=== PATIENT | female | born 1950 | race Caucasian/White ===

== ENCOUNTER 2023-11-16 07:27 | Observation (INO) ==
[2023-11-16] MEDS: NOZIN NASAL SANITIZER TP ONE (07:37)
[2023-11-16] MEDS: LR 1,000 ML IV 1,000 ML IV ONE (07:45)
[2023-11-16 08:38] LABS: ALANINE AMINOTRANSFERASE 16 Units/L (12-78); ALBUMIN 3.4 g/dL (3.4-5.0); ALKALINE PHOSPHATASE 69 Units/L (46-116); ASPARTATE AMINO TRANSFERASE 13 Units/L (15-37); BLOOD UREA NITROGEN 13 mg/dL (7-18); CALCIUM 8.7 mg/dL (8.5-10.1); CARBON DIOXIDE 27.4 mmol/L (21-32); CHLORIDE 109 mmol/L (98-107); CREATININE 0.82 mg/dL (0.55-1.02); GLUCOSE 101 mg/dL (65-99); POTASSIUM 3.4 mmol/L (3.5-5.1); SODIUM 144 mmol/L (136-145); TOTAL PROTEIN 7.3 g/dL (6.4-8.2); eGFR NON BLACK RACES > 60 (>60)
[2023-11-16] MEDS: ANCEF VIAL 1 GRAM ONE (08:40)
[2023-11-16] MEDS: NS 100 ML IV 100 ML ONE (08:40)
[2023-11-16] MEDS ORDERED: KETAMINE HCL ONE (08:43)
[2023-11-16] MEDS: PRECEDEX INJ VIAL ONE (08:43)
[2023-11-16] MEDS: DIPRIVAN VIAL 40 ML ONE (08:43)
[2023-11-16] MEDS: FENTANYL VIAL INJ 100 mcg ONE (08:43)
[2023-11-16] MEDS: VERSED ONE (08:43)
[2023-11-16] MEDS: VISIPAQUE 100 ML ONE (09:00)
[2023-11-16] MEDS: HEPARIN SODIUM IN D5W 75,000 UNITS/1,500 ML BAG ONE (09:00)
[2023-11-16] MEDS: VISIPAQUE 50 ML ONE (09:00)
[2023-11-16] MEDS: MARCAINE 0.5% ONE (09:00)
[2023-11-16] MEDS: HEPARIN SODIUM INJ 5000 UNITS ONE ×2 (09:03→10:07)
[2023-11-16] MEDS: EPHEDRINE SULFATE INJ ONE (09:06)
[2023-11-16] MEDS: NS 1,000 ML IV 1,000 ML ONE (09:21)
[2023-11-16] MEDS: DIPRIVAN VIAL 20 ML ONE (10:08)
[2023-11-16] MEDS: NITROGLYCERIN IV PREMIX 50 MG 50 MG/250 ML BAG ONE (10:10)
--- NOTE | 2023-11-16 10:53 | OR.IMMED ---
IMMEDIATE POST-OP NOTE Immediate Post-Op Note Date of surgery/procedure: 11/16/23 Pre-Op Diagnosis: critical ischemia left leg Post-Op Diagnosis: same Procedure: Diagnostic aortogram, arteriogram left leg, arctom and drug-coated balloon Caron plasti of the completely occluded left superficial femoral artery and subsequent drug-coated stents 4 placed in the superficial femoral artery. 1 of the middle stents was a Viabahn covered stent as there was a small area of extravasation, balloon angioplasty of the left anterior tibial artery, balloon angioplasty left posterior tibial artery Surgeon/Resort Host: Beth Findings: long segment occlusion of the left superficial femoral artery beginning at its takeoff with reconstitution of the popliteal artery and 3 vessel runoff ,at the end of the case there was no filling of the posterior tibial and anterior tibial arteries requiring the angioplasty of these 2 vessels Estimated Blood Loss: 100cc Complications: none Discharge Progress Notes: patient will be given 10 milligrams of Xarelto prior to discharge. She will be discharged home on Xarelto 2.5 milligrams BID and daily aspirin 81 milligrams.she will follow up in 1 week
[2023-11-16] MEDS: XARELTO PO ONE (10:59)
[2023-11-16] MEDS: LOVENOX INJ 80 MG SYR SC STA (14:50)
[2023-11-16] MEDS: DILAUDID INJ IVP ONE (14:55)
--- NOTE | 2023-11-16 16:55 | CT ---
EXAM:CTA AORTA WITH RUNOFFHISTORY:DIMINISHED PEDAL PULSES, PT HAD VASCULAR SURGERY THIS AM;COMPARISON:CTA aorta with bilateral lower extremity runoff October 14, 2023TECHNIQUE:CT angiography of the aorta with bilateral lower extremity runoff. Three-dimensional reconstructions and/or MIPS images were produced and reviewed.FINDINGS:CTA aorta: Bilateral breast implants are present and partially imaged. There may be some volume loss in the right implant, incompletely evaluated with CT.Emphysematous changes are noted in the lung bases. There is mild atelectasis in the lung bases. No liver mass. Vicarious excretion of contrast in the gallbladder. A gallstone is noted. Normal adrenal glands. Kidneys enhance normally. Normal spleen contours. Atrophy of the pancreas. Fluid material noted within the stomach.The bowel is not obstructed. No sign of appendicitis. No pelvic free fluid. Excreted contrast is present in the urinary bladder.The abdominal aorta tapers normally with advanced multifocal atherosclerotic plaque. The celiac and superior mesenteric arteries are patent. There is moderate calcified plaque at the origin of the left renal artery. 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 The dissection extends into the left internal iliac artery.There is a dissection of the right common iliac artery extending through the bifurcation of the right external and right internal iliac branches.CTA bilateral lower extremity runoff: There is a focal dissection versus linear plaque involving the right common femoral artery. There is weak flow in the right common femoral artery with multifocal ratty atherosclerotic plaque. Flow is noted in the right popliteal artery. There is faint flow in the proximal right calf trifurcation without demonstrable flow in the majority of the right anterior tibial artery. There is weak flow to the midportion of the right posterior tibial and peroneal branches without visible contrast to the ankle or foot.The left common femoral artery is patent. There are stents present in the left superficial femoral artery which demonstrate luminal contrast. The stents extend into the left popliteal artery demonstrating no flow within the left popliteal artery. 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 The dissection extends through the left internal iliac artery.There is a dissection of the right common iliac artery extending into the bifurcation of the right external and right internal iliac branches.CTA bilateral lower extremity runoff:The distal left popliteal stent is occluded. No flow in the left calf trifurcation.There is a vascular blush associated with the musculature involving the distal left superficial femoral artery stent consistent with focal arterial extravasation.There is a focal dissection versus linear plaque involving the right common femoral artery.There is faint flow in the proximal right calf trifurcation without demonstrable flow in the majority of the right anterior tibial artery. There is weak flow to the midportion of the right posterior tibial and peroneal branches without visible contrast to the ankle or foot.Dose reduction techniques including automated exposure control (AEC) and adjustment of mA and kv were utilized.THIS IS AN ELECTRONICALLY VERIFIED FINAL REPORT11/16/2023 4:51 PM - Electronically signed by Joe Guzman MD
[2023-11-16] MEDS: DILAUDID INJ IVP PRN (18:28)
[2023-11-16] MEDS: LR 1,000 ML IV 1,000 ML IV SCH (18:28)
[2023-11-16] MEDS ORDERED: LOVENOX INJ 80 MG SYR SC SCH ×2 (21:00)
[2023-11-16] MEDS: AMBIEN PO PRN (21:51)
[2023-11-16] MEDS: LOVENOX INJ 40 MG SYR SC SCH (21:51)
[2023-11-16] MEDS: HIBICLENS WASH EXT ONE (23:43)
[2023-11-17 06:03] LABS: BASOPHILS # (AUTO) 0.1 X10^3/uL (0.0-0.1); BASOPHILS % (AUTO) 0.8 % (0.2-1.0); EOSINOPHILS % (AUTO) 0.3 % (0.9-2.9); HEMATOCRIT 34.6 % (36.0-47.0); HEMOGLOBIN 11.6 g/dL (12.0-16.0); LYMPHOCYTES # (AUTO) 1.1 X10^3/uL (1.3-2.9); LYMPHOCYTES % (AUTO) 8.3 % (21.0-51.0); MEAN CORPUSCULAR HGB CONC 33.4 g/dL (33.0-35.0); MEAN CORPUSCULAR VOLUME 80.9 fL (80.0-100.0); MEAN PLATELET VOLUME 8.9 fL (7.4-11.0); NEUTROPHILS # (AUTO) 10.6 x10^3/uL (2.2-4.8); NEUTROPHILS % (AUTO) 82.6 % (42.0-75.0); PLATELET COUNT 235 X10^3/uL (150.0-450.0); RED BLOOD COUNT 4.28 X10^6/uL (3.5-5.4); RED CELL DISTRIBUTION WIDTH 15.5 % (11.6-16.5); WHITE BLOOD COUNT 12.8 X10^3/uL (3.6-10.0)
[2023-11-17 06:12] LABS: BLOOD UREA NITROGEN 9 mg/dL (7-18); CALCIUM 8.4 mg/dL (8.5-10.1); CARBON DIOXIDE 29.1 mmol/L (21-32); CHLORIDE 104 mmol/L (98-107); COR NA(FOR HYPERGLY) 141 mmol/L (136-145); CREATININE 0.73 mg/dL (0.55-1.02); GLUCOSE 116 mg/dL (65-99); SODIUM 141 mmol/L (136-145); eGFR NON BLACK RACES > 60 (>60)
[2023-11-17] MEDS ORDERED: CONSULT PHARMACY - POTASSIUM & MAGNESIUM XX SCH (07:00)
[2023-11-17] MEDS: K-DUR TAB 20 MEQ PO SCH (09:06)
[2023-11-17] MEDS: NORVASC TAB 5 MG PO SCH (09:06)
[2023-11-17] MEDS: NICOTINE PATCH TD SCH (09:07)
[2023-11-17] MEDS: PROTONIX TAB 40 MG PO SCH (09:07)
--- NOTE | 2023-11-17 15:01 | NOTE.SOAP ---
Soap Note Note for Day of Date of Exam: 11/16/23 Subjective Data Subjective Data: On November 15 patient underwent atherectomy and Drug coated stenting of the entire occluded left superaficial femoral artery. Patient was discharged home and returned several hours later complaining of severe pain of the right leg. CT angiogram obtained which had question of dissection of the right common iliac artery extending into the internal iliac artery artery as well as possible disssection of the left common leg artery. Patient had Doppler flow of the dorsalis pedis and posterior tibial on the left side. Right foot was Pale. Pain relieved with IV dilaudid . Good palpable femoral pulses bilaterally . Patietn has smoked several cigarettes since surgery. Objective Data Temperature: 98.2 F Pulse Rate: 89 Respiratory Rate: 18 Blood Pressure: 197/82 O2 Sat by Pulse Oximetry: 94 Objective Data: As above Assessment Assessment: as above Plan Plan: Admit, observe, start therapeutic Lovenox
[2023-11-17 15:14] LABS: BILIRUBIN,URINE NEGATIVE (NEGATIVE); BLOOD/HEMOGLOBIN,URINE 3+ (NEGATIVE); GLUCOSE, URINE NEGATIVE (NEGATIVE); KETONES,URINE NEGATIVE (NEGATIVE); LEUKOCYTE ESTERASE ,URINE 1+ (NEGATIVE); NITRITES,URINE NEGATIVE (NEGATIVE); PH,URINE 6.5 (5.0 - 8.0); PROTEIN,URINE 1+ (NEGATIVE); UROBILINOGEN,URINE NORMAL (NORMAL)
[2023-11-17 15:31] LABS: APPEARANCE,URINE CLEAR (CLEAR); COLOR,URINE STRAW (YELLOW)
[2023-11-17 15:32] LABS: BACTERIA,URINE TRACE /HPF (NEGATIVE); RBC,URINE 0-2 /HPF (0-3); SQUAMOUS EPITHELIAL CELL,UR NEGATIVE /HPF (NEGATIVE)
[2023-11-17 16:08] VITALS: BP 160/72; PULSE 90; RESP 18; TEMP 98.1; O2SAT 91
--- NOTE | 2023-11-17 18:06 | W.DIS.FURT ---
Summary of Discharge Discharge Summary of Date Date of Exam: 11/17/23 Admission Date Date of Admission: 11/16/23 Admission Diagnosis Hospital Course: This is a 73 year old female who was in the operating room as an outpatient yesterday the 15 of November for critical ischemia the left leg with long segment total occlusion of the left superficial femoral artery beginning at the takeoff of the superficial artery with reconstitution of the popliteal artery . Atherectomy and Drug coated stenting of the entire left superficial the artery and angioplasty or both the anterior tibial and posterior tibial arteries were performed . She did well initially and was discharged home. She is a heavy smoker and did smoke cigarettes prior to coming back and approximately 2 hours later she complained of severe pain of the right leg. At that time the left leg had good doppler signals at the ankle. The right leg did not have good doppler signals and although it was warm to the ankle there was some pallor of the right leg noted. Stat CT angiogram showed possible dissections of both the right and left common iliac arteries. The only thing that had been through those areas was the sheath itself. Her pain was controlled .She was hydrated. She is doing much better and this will have to be addressed. However, she will be discharged home at this time on her usual medications to include Xarelto and aspirin and she will be given prescription for Percocet, 10 milligram tablets, 1 every 6 hours PRN pain. She is scheduled for surgery on the 22 of November. We plan access through the left arm with intravascular ultrasound of both iliac arteries with possible bilateral iliac artery stenting. There was some question of possible poplteal disease of the left side on the most recent CT scan . That will also be addressed. She had complain of some burning with urination. Urinalysis showed positive leukocytes but was nitrite negative. She will be given Bactrim DS 1PO BID for 10 days. My office will make all the arrangements for surgery next week. Creatinine on discharge is 0.73. Vital Signs: Vital Signs (72 hours) 11/17/23 15:01 11/16/23 07:40 11/16/23 07:40 Temperature 98.2 F 97.8 F Pulse Rate 89 73 73 Pulse Rate [Left Brachial] Respiratory Rate 18 20 Blood Pressure 197/82 134/61 Blood Pressure [Right Arm] O2 Sat by Pulse Oximetry 94 L 99 Oxygen Delivery Method Room Air Oxygen Flow Rate FIO2% 11/16/23 10:45 11/16/23 10:55 11/16/23 11:10 Temperature Pulse Rate 73 66 61 Pulse Rate [Left Brachial] Respiratory Rate 18 18 20 Blood Pressure 115/57 111/56 120/60 Blood Pressure [Right Arm] O2 Sat by Pulse Oximetry 95 94 L 94 L Oxygen Delivery Method Room Air Room Air Room Air Oxygen Flow Rate FIO2% 11/16/23 11:40 11/16/23 11:50 11/16/23 11:25 Temperature Pulse Rate 66 66 63 Pulse Rate [Left Brachial] Respiratory Rate 18 18 18 Blood Pressure 105/58 114/55 137/62 Blood Pressure [Right Arm] O2 Sat by Pulse Oximetry 94 L 95 64 L Oxygen Delivery Method Room Air Room Air Room Air Oxygen Flow Rate FIO2% 11/16/23 14:55 11/16/23 15:22 11/16/23 16:00 Temperature 98.2 F Pulse Rate Pulse Rate [Left Brachial] 89 Respiratory Rate 20 18 Blood Pressure Blood Pressure [Right Arm] 197/82 O2 Sat by Pulse Oximetry 94 L Oxygen Delivery Method Room Air Room Air Oxygen Flow Rate FIO2% 11/16/23 16:10 11/16/23 16:15 11/16/23 16:25 Temperature Pulse Rate Pulse Rate [Left Brachial] 91 H 102 H Respiratory Rate Blood Pressure Blood Pressure [Right Arm] 189/84 174/76 167/55 O2 Sat by Pulse Oximetry Oxygen Delivery Method Oxygen Flow Rate FIO2% 11/16/23 15:25 11/16/23 18:28 11/16/23 18:58 Temperature Pulse Rate Pulse Rate [Left Brachial] Respiratory Rate 20 18 17 Blood Pressure Blood Pressure [Right Arm] O2 Sat by Pulse Oximetry Oxygen Delivery Method Oxygen Flow Rate FIO2% 11/16/23 20:00 11/16/23 22:50 11/17/23 04:19 Temperature 98.1 F Pulse Rate Pulse Rate [Left Brachial] 95 H Respiratory Rate 20 18 20 Blood Pressure Blood Pressure [Right Arm] 167/74 O2 Sat by Pulse Oximetry 93 L Oxygen Delivery Method Room Air Oxygen Flow Rate FIO2% 11/16/23 19:00 11/16/23 23:20 11/16/23 23:49 Temperature 98.1 F Pulse Rate Pulse Rate [Left Brachial] 86 Respiratory Rate 17 20 Blood Pressure Blood Pressure [Right Arm] 132/79 O2 Sat by Pulse Oximetry 92 L Oxygen Delivery Method Room Air Room Air Oxygen Flow Rate FIO2% 11/17/23 04:46 11/17/23 04:49 11/17/23 04:00 Temperature 98.6 F Pulse Rate Pulse Rate [Left Brachial] 85 Respiratory Rate 18 20 Blood Pressure Blood Pressure [Right Arm] 129/58 O2 Sat by Pulse Oximetry 92 L Oxygen Delivery Method Nasal Cannula Room Air Oxygen Flow Rate 2 FIO2% 28 11/17/23 08:00 11/17/23 08:59 11/17/23 09:04 Temperature 98.4 F Pulse Rate Pulse Rate [Left Brachial] 81 Respiratory Rate 20 Blood Pressure Blood Pressure [Right Arm] 160/70 O2 Sat by Pulse Oximetry 96 Oxygen Delivery Method Room Air Room Air Room Air Oxygen Flow Rate 2 FIO2% 28 11/17/23 09:32 11/17/23 15:11 11/17/23 10:02 Temperature Pulse Rate Pulse Rate [Left Brachial] Respiratory Rate 20 19 21 Blood Pressure Blood Pressure [Right Arm] O2 Sat by Pulse Oximetry Oxygen Delivery Method Oxygen Flow Rate FIO2% 11/17/23 12:00 11/17/23 16:00 11/17/23 15:41 Temperature 98.3 F 98.1 F Pulse Rate Pulse Rate [Left Brachial] 75 90 Respiratory Rate 18 18 19 Blood Pressure Blood Pressure [Right Arm] 173/73 160/72 O2 Sat by Pulse Oximetry 92 L 91 L Oxygen Delivery Method Room Air Room Air Oxygen Flow Rate FIO2% Labs: Laboratory Last Values WBC 12.8 X10^3/uL (3.6-10.0) H 11/17/23 05:43 RBC 4.28 X10^6/uL (3.5-5.4) 11/17/23 05:43 Hgb 11.6 g/dL (12.0-16.0) L 11/17/23 05:43 Hct 34.6 % (36.0-47.0) L 11/17/23 05:43 MCV 80.9 fL (80.0-100.0) 11/17/23 05:43 MCH 27.0 pg (27.0-34.0) 11/17/23 05:43 MCHC 33.4 g/dL (33.0-35.0) 11/17/23 05:43 RDW 15.5 % (11.6-16.5) 11/17/23 05:43 Plt Count 235 X10^3/uL (150.0-450.0) 11/17/23 05:43 MPV 8.9 fL (7.4-11.0) 11/17/23 05:43 Neut % (Auto) 82.6 % (42.0-75.0) H 11/17/23 05:43 Lymph % (Auto) 8.3 % (21.0-51.0) L 11/17/23 05:43 [place] % (Auto) 8.0 % (0.0-13.0) 11/17/23 05:43 Eos % (Auto) 0.3 % (0.9-2.9) L 11/17/23 05:43 Baso % (Auto) 0.8 % (0.2-1.0) 11/17/23 05:43 Neut # (Auto) 10.6 x10^3/uL (2.2-4.8) H 11/17/23 05:43 Lymph # (Auto) 1.1 X10^3/uL (1.3-2.9) L 11/17/23 05:43 [place] # (Auto) 1.0 x10^3/uL (0.3-0.8) H 11/17/23 05:43 Eos # (Auto) 0.0 x10^3/uL (0.0-0.2) 11/17/23 05:43 Baso # (Auto) 0.1 X10^3/uL (0.0-0.1) 11/17/23 05:43 Absolute Nucleated RBC 0.0 /100WBC 11/17/23 05:43 Sodium 141 mmol/L (136-145) 11/17/23 05:43 Corrected Sodium 141 mmol/L (136-145) 11/17/23 05:43 Potassium 3.0 mmol/L (3.5-5.1) L 11/17/23 05:43 Chloride 104 mmol/L (98-107) 11/17/23 05:43 Carbon Dioxide 29.1 mmol/L (21-32) 11/17/23 05:43 BUN 9 mg/dL (7-18) 11/17/23 05:43 Creatinine 0.73 mg/dL (0.55-1.02) 11/17/23 05:43 Est GFR (MDRD) Af Amer > 60 (>60) 11/17/23 05:43 Est GFR (MDRD) Non-Af > 60 (>60) 11/17/23 05:43 Glucose 116 mg/dL (65-99) H 11/17/23 05:43 Calcium 8.4 mg/dL (8.5-10.1) L 11/17/23 05:43 Corrected Calcium TNP 11/16/23 08:08 Magnesium 1.7 mg/dL (2.0-2.9) L 11/17/23 05:43 Total Bilirubin 0.30 mg/dL (0.2-1.0) 11/16/23 08:08 AST 13 Units/L (15-37) L 11/16/23 08:08 ALT 16 Units/L (12-78) 11/16/23 08:08 Alkaline Phosphatase 69 Units/L (46-116) 11/16/23 08:08 Total Protein 7.3 g/dL (6.4-8.2) 11/16/23 08:08 Albumin 3.4 g/dL (3.4-5.0) 11/16/23 08:08 Globulin 3.9 g/dL (2.5-4.5) 11/16/23 08:08 Albumin/Globulin Ratio 0.9 Ratio (1.1-2.1) L 11/16/23 08:08 Specimen Type Clean catch urine 11/17/23 15:00 Urine Color Straw (YELLOW) 11/17/23 15:00 Urine Appearance Clear (CLEAR) 11/17/23 15:00 Urine pH 6.5 (5.0 - 8.0) 11/17/23 15:00 Ur Specific [place] 1.010 (1.000-1.030) 11/17/23 15:00 Urine Protein 1+ (NEGATIVE) 11/17/23 15:00 Urine Glucose (UA) Negative (NEGATIVE) 11/17/23 15:00 Urine Ketones Negative (NEGATIVE) 11/17/23 15:00 Urine Blood 3+ (NEGATIVE) 11/17/23 15:00 Urine Nitrite Negative (NEGATIVE) 11/17/23 15:00 Urine Bilirubin Negative (NEGATIVE) 11/17/23 15:00 Urine Urobilinogen Normal (NORMAL) 11/17/23 15:00 Ur Leukocyte Esterase 1+ (NEGATIVE) 11/17/23 15:00 Urine RBC 0-2 /HPF (0-3) 11/17/23 15:00 Urine WBC 3-5 /HPF (0-5) 11/17/23 15:00 Ur Squamous Epith Cells Negative /HPF (NEGATIVE) 11/17/23 15:00 Urine Bacteria Trace /HPF (NEGATIVE) 11/17/23 15:00 Ur Culture Indicated? No/not indicated 11/17/23 15:00 Reason For Visit: CRITICAL ISCHEMIA TO RIGHT LEG Discharge Date Discharge Date: 11/17/23 Discharge Diagnosis All Active Problems (Updated 11/10/23 @ 13:08 by Jeremy Wing) Leg pain, bilateral (Acute) Atypical chest pain (Acute) Hypertension (Acute) Altered mental status (Acute) Non-ST elevation RI (NSTEMI) (Acute) Dehydration (Acute) Lower extremity weakness (Acute) Mixed hyperlipidemia (Acute) Annual physical exam (Acute) History of IBS (Acute) KALLIE (generalized anxiety disorder) (Acute) Insomnia (Acute) Bronchitis (Acute) Hypokalemia (Acute) Acute exacerbation of chronic obstructive pulmonary disease (COPD) (Acute) Plan of Treatment: Continue with present treatment and follow up plan. Pt is to keep follow up appointment as instructed and take medications as ordered. Discharge Medications Discharge Medications: lisinopril Allergy (Verified 11/16/23 16:37) pollen extracts Allergy (Verified 11/16/23 16:37) CONTINUE taking the following medications daridorexant 50 mg tablet (Quviviq) 50 mg PO QDAY 11/16/23 [History] New Prescriptions oxycodone-acetaminophen 10 mg-325 mg tablet 1 tab PO Q6H PRN #40 tabs 11/17/23 [Rx] sulfamethoxazole 800 mg-trimethoprim 160 mg tablet (Bactrim DS) 1 tab PO BID #20 tabs 11/17/23 [Rx] Discharge Disposition Assessment: see hospital course Discharge Plan Discharge Plan Hospital Course: This is a 73 year old female who was in the operating room as an outpatient yesterday the 15 of November for critical ischemia the left leg with long segment total occlusion of the left superficial femoral artery beginning at the takeoff of the superficial artery with reconstitution of the popliteal artery . Atherectomy and Drug coated stenting of the entire left superficial the artery and angioplasty or both the anterior tibial and posterior tibial arteries were performed . She did well initially and was discharged home. She is a heavy smoker and did smoke cigarettes prior to coming back and approximately 2 hours later she complained of severe pain of the right leg. At that time the left leg had good doppler signals at the ankle. The right leg did not have good doppler signals and although it was warm to the ankle there was some pallor of the right leg noted. Stat CT angiogram showed possible dissections of both the right and left common iliac arteries. The only thing that had been through those areas was the sheath itself. Her pain was controlled .She was hydrated. She is doing much better and this will have to be addressed. However, she will be discharged home at this time on her usual medications to include Xarelto and aspirin and she will be given prescription for Percocet, 10 milligram tablets, 1 every 6 hours PRN pain. She is scheduled for surgery on the 22 of November. We plan access through the left arm with intravascular ultrasound of both iliac arteries with possible bilateral iliac artery stenting. There was some question of possible poplteal disease of the left side on the most recent CT scan . That will also be addressed. She had complain of some burning with urination. Urinalysis showed positive leukocytes but was nitrite negative. She will be given Bactrim DS 1PO BID for 10 days. My office will make all the arrangements for surgery next week. Creatinine on discharge is 0.73. Patient Disposition: 01 HOME, SELF-CARE Condition: Stable Health Concerns: Post Hospitalization: new medications and changes needed to prevent readmission or further decline. Pt educated and given instructions on all concerns. Care Plan Goals: Problem: Pain/Alteration in Comfort Goal: Improve/ Resolve Pain; Achieve Pain Tolerance Instructions: Take pain medications as prescribed. Contact your primary care provider if your pain is unrelieved or worsens. Follow up with primary care provider as directed. Plan of Treatment: Continue with present treatment and follow up plan. Pt is to keep follow up appointment as instructed and take medications as ordered. Assessment: see hospital course Prescription drug monitoring program results: PDMP reviewed and no concerns identified Prescriptions: New sulfamethoxazole-trimethoprim [Bactrim DS] 800-160 mg Tablet 1 tab PO BID Qty: 20 0RF oxycodone-acetaminophen 10-325 mg Tablet 1 tab PO Q6H MDD 4 PRNQty: 40 0RF Continued amlodipine 5 mg tablet 5 mg PO QDAY Qty: 90 0RF potassium chloride 20 mEq tablet extended release 20 meq PO BID 4 Days Qty: 8 0RF Quviviq 50 mg tablet 50 mg PO QDAY Orders to Discharge Patient Discharge Orders: Discharge (Routine); Ordered 11/17/23 Ordered By: Andrés Campos Follow ups/Referrals Follow ups/Referrals: Jeremy Wing [Primary Care Provider] - PCP Andrés Campos [STAFF PHYSICIAN] - 11/22/23 4:15 pm Instructions Instructions: Monitored Anesthesia Care, Rivaroxaban oral tablets, Endovascular Therapy for Peripheral Vascular Disease, Care After, Aspirin, ASA oral tablets Activity Restrictions/Additional Instructions: POST OPERATIVE INSTRUCTIONS: (1) A RESPONSIBLE ADULT SHOULD REMAIN WITH YOU TODAY, YOU SHOULD BE ASSISTED TO THE BATHROOM FOR 6-8 HOURS. REST QUIETLY THE REMAINDER OF THE DAY. (2) DEEP BREATHING AND COUGHING EXERCISES FOR THE NEXT 6-8 HOURS. (3)SMOKE ONLY IF SOMEONE IS WITH YOU FOR THE NEXT 12 HOURS. (4) DIET TOLERATED, DRINK PLENTY OF WATER. (5) DO NOT DRIVE YOUR AUTOMOBILE OR OPERATE MACHINERY FOR 12-18 HOURS AFTER RECEIVING A GENERAL ANESTHETIC OR WHILE TAKING NARCOTIC PAIN MEDICATION. (6) SOME ANESTHETIC AGENTS AND MEDICATION TAKEN FOR PAIN MAY CAUSE NAUSEA. IF NAUSEA PERSISTS FOR SEVERAL HOURS AT HOME, CALL YOUR DOCTOR. (7) LIGHT ACTIVITIES. (8) OBSERVE OPERATIVE AREA FOR SIGNS OF INFECTION: REDNESS, SWELLING, FOUL ODOR, DRAINAGE, AND NOTIFY FOR ANY CONCERNS OR FEVER OVER 101.0. (9) KEEP OPERATIVE AREA CLEAN AND DRY. YOU MAY REMOVE DRESSING AFTER 24 HOURS AND SHOWER/BATH WITH ANTIBACTERIAL SOAP. (10) RESUME ALL PREVIOUS MEDICATIONS PRESCRIBED BY YOUR DOCTOR. (11) TAKE PAIN MEDICATIONS PRESCRIBED. (12) OBSERVE AFFECTED AREA FOR CIRCULATION, CHANGE OF COLOR, NUMBNESS OR TINGLING, COLDNESS, INCREASED PAIN, OR BLEEDING. FOR ANY COMPLICATIONS PLEASE CALL DR. CAMPOS @ PRIOR TO GOING TO EMERGENCY DEPARTMENT. FOLLOW UP WITH DR. CAMPOS ON November 21 at 4:15pm Stand Alone Forms: Post Hospital Follow Up Care
--- NOTE | 2023-11-22 13:29 | DR.OPNOTE ---
OP NOTE Pre-Op Diagnosis: critical iachemia left leg Post-Op Diagnosis: same Procedure Date Date Of Procedure: 11/16/23 Procedure: PROCEDURE: DIAGNOSTIC AORTOGRAM, DIAGNOSTIC ARTERIOGRAM LEFT LEG, ATHERTECTOMY AND DRUG COATED BALLOON ANGIOPLASTY OF TOTALLY OCCLUDED LEFT SUPERFICIAL FEMORAL ARTERY AND SUSEQUENT STENTING OF THE ENTIRE LEFT SUPERFICIAL FEMORAL ARTERY USING THREE GUERO DRUG COATED STENTS AND ONE COVERED VIABAHN STENT, ANGIOPASTY LEFT ANTERIOR TIBIAL AND POSTERIOR TIBIAL ARTERIES . NARRATIVE : The patient was taken to the operative suite and placed in the supine position. The right groin and entire left leg were prepped and draped in sterile fashion. The patient was given intravenous sedation supervised by myself. Time out for the procedure obtained. Ultrasound used to identify the right femoral artery and the skin overlying it infiltrated with 0.5% Marcaine. Ultrasound then used to guide puncture of the right femoral artery and a 0.012 inch guide wire was placed. Incision made over the guide wire at the skin edge with a # 11 knife blade and a micro sheath placed over the guide wire into the right femoral artery The small guidewire exchanged for a 0.035 inch Advantage glide wire and the micro sheath exchanged for a 5 Fr vascular sheath. Patient given 5000 units of intravenous heparin. Omni catheter was placed over the guide wire into the aorta and diagnostic aortogram carried out with the power injector showing patent aorta and iliac arteries . Omni catheter was used to steer the guide wire down the left common iliac artery to the distal left external iliac artery . Omni catheter was exchanged for a Tustin catheter and sequential arteriograms carried out of the left lower extremity showing complete total occlusion of the left superficial femoral artery from it's takeoff to the re-constututed left popliteal artery. At this time there appeared to be three vessel runoff. The 5 Fr sheath in the right groin then exchanged for a 7 Fr Catapult destination sheath which was parked in the distal left external iliac artery. Tustin catheter and the guide wire were used to traverse the arteries of the left leg ultimately ending in the left poterior tibial artery . This was selective catheterization. 0.035 inch wire removed and exchanged for a 0.014 inch wire. Over this wire we placed the Jet Stream atherectomy device and performed atherectomy of the entire left superficial femoral artery . At this point we performed drug coated balloon dilatation of the entire left superfical femoral artery using two Fennimore 6mmx 200 mm drug coated balloons inflating each for three minutes . At the completion of this a follow up arteriogram showed area of extravasation of contrast in the mid left superficial femoral artery and dissection of the left superficial femoral artery . Over the area of extravasation we placed a 7mm covered Viabahn covered stent and balloon dilated it witha 7 mm balloon . The superficial femoral artery above the covered stent was stented with an Guero 6 millimetre by 150 millimetre drug coated stent and and an Guero 6 millimetre by 60 millimetre drug-coated stent. These had 3 millimeter overlap and then were dilated with the 7 millimeter balloon. Distal to the Viahbahn stent we placed an Guero 6 millimetre by 80 millimetre drug coated stent and dilated it as well with the 7 millimeter balloon . Post procedure arteriogram showed resolution of the extravasation with good flow through the superficial femoral and left popliteal arteries. However, now there was no runoff in the anterior tibial and posterior tibial arteries. We were concerned about possible small embolii now versus spasm. The 0.014 inch wire was in the posterior tibial artery and was all the way to the foot and we dilated this with a [employer] 2.5 millimetre by 220 millimetre balloon inflating it for 1 minute. The guide wire was then pulled out of th posterior tibial artery and placed down the anterior tibial artery. This was also selective catherization .We ballooned the anterior tibial artery all the way to the ankle with a 2.5 millimeter by 220 millimeter angioplasty balloon. Post procedure arteriogram showed excellent flow throughout the entire left leg including the trifurcatiopn vessels. All wires and devices removed. The 7 Fr sheath was pulled back into the aorta and a 0.035 inch wire placed. The destination Catapult sheath exchanged for an Angio seal device used to close the puncture of the right femoral artery. Dressing applied to the left groin. The patient taken to [facility] in good condition. Type of Anesthesia: Local (0.5% Marcaine ) Anesthesia Comment: plus MAC Findings: Long segment occlusion of the left SFA from takeoff to popliteal artery, stenosis vs spasm of anterior tibial and posterior tibial arteries Type of Fluids Used:: Lactated Ringers Total Amount of Fluid Infused:: 1000 cc Urine output: 300cc EBL: 100 cc Hardware: Guero stents 6mmx 150 mm,6mmx 80mm, 6mmx 60 mm and Viabahn 6 mm stent Complications:: none Needle/Sponge Count:: correct Disposition/Condition: Pt. tolerated procedure without difficulty. Taken to [facility] in stable condition.
== END 2023-11-17 18:25 | disposition home or self-care (01) ==
LOC: SURG1 07:27 → MED/SURG 07:27 → SURG1 12:05
PROVIDERS: ADMIT Surgery; ATTEND Surgery
DX: Z86.73 Personal history of transient ischemic attack (TIA), and cerebral infarction without residual deficits; E78.5 Hyperlipidemia, unspecified; I70.223 Atherosclerosis of native arteries of extremities with rest pain, bilateral legs; I10 Essential (primary) hypertension; E87.6 Hypokalemia; E83.42 Hypomagnesemia; Z72.0 Tobacco use

== ENCOUNTER 2023-11-30 06:23 | Observation (INO) ==
[2023-11-30] MEDS: NOZIN NASAL SANITIZER TP ONE (06:40)
[2023-11-30] MEDS: LR 1,000 ML IV 1,000 ML IV ONE ×2 (06:40→09:56)
[2023-11-30 07:10] VITALS: BMI 21.1
[2023-11-30] MEDS: ANCEF VIAL 1 GRAM ONE (07:33)
[2023-11-30] MEDS: NS 100 ML IV 100 ML ONE (07:33)
[2023-11-30] MEDS: ZOFRAN INJ 4 MG VIAL ONE (07:45)
[2023-11-30] MEDS: KETAMINE 50 MG/5 ML-NACL SYRNG IV ONE (07:45)
[2023-11-30] MEDS: VERSED IVP ONE (07:45)
[2023-11-30] MEDS: SUPRANE ONE (07:45)
[2023-11-30] MEDS: PEPCID 20 MG VIAL ONE (07:45)
[2023-11-30] MEDS: MARCAINE 0.5% ONE (08:03)
[2023-11-30] MEDS: HEPARIN SODIUM IN D5W 75,000 UNITS/1,500 ML BAG ONE (08:03)
[2023-11-30] MEDS: HEPARIN SODIUM INJ 5000 UNITS ONE (08:21)
[2023-11-30] MEDS: VISIPAQUE 100 ML ONE (09:02)
[2023-11-30] MEDS: VISIPAQUE 50 ML ONE (09:27)
[2023-11-30] MEDS: DIPRIVAN VIAL 80 ML ONE (10:51)
[2023-11-30] MEDS: EPHEDRINE SULFATE INJ ONE (10:51)
[2023-11-30] MEDS: XYLOCAINE 2 % (PLAIN) ONE (10:51)
[2023-11-30] MEDS ORDERED: FENTANYL VIAL INJ 100 mcg IVP ONE (10:53)
[2023-11-30] MEDS: FENTANYL VIAL INJ 100 mcg IVP PRN (10:58)
[2023-11-30] MEDS: DIPRIVAN VIAL 20 ML ONE (11:36)
[2023-11-30] MEDS: PROTAMINE SULFATE 50 MG VIAL ONE (12:00)
--- NOTE | 2023-11-30 12:19 | OR.IMMED ---
IMMEDIATE POST-OP NOTE Immediate Post-Op Note Date of surgery/procedure: 11/30/23 Pre-Op Diagnosis: b/l iliac artery dissection, servere stenosis right common femoral artery Post-Op Diagnosis: same Procedure: right femoral endarterectomy and patch angioplasty, aortogram, arteriogram r left leg, bl common iliac artery stenting , b/l external iliac artery stenting Description of Procedure: see dictation Surgeon/Mapping Specialist: Beth Findings: as above Estimated Blood Loss: 250 cc Complications: none Progress Notes: to floor
[2023-11-30] MEDS: DILAUDID INJ ONE (12:31)
[2023-11-30] MEDS: LR 1,000 ML IV 1,000 ML IV SCH (13:21)
[2023-11-30] MEDS: PERCOCET TAB 5/325 MG PO PRN (15:00)
[2023-11-30] MEDS: XARELTO PO SCH (21:22)
[2023-12-01 04:48] LABS: BASOPHILS # (AUTO) 0.1 X10^3/uL (0.0-0.1); BASOPHILS % (AUTO) 0.9 % (0.2-1.0); EOSINOPHILS # (AUTO) 0.3 x10^3/uL (0.0-0.2); EOSINOPHILS % (AUTO) 1.9 % (0.9-2.9); HEMATOCRIT 22.4 % (36.0-47.0); HEMOGLOBIN 7.6 g/dL (12.0-16.0); LYMPHOCYTES # (AUTO) 1.6 X10^3/uL (1.3-2.9); LYMPHOCYTES % (AUTO) 11.2 % (21.0-51.0); MEAN CORPUSCULAR HGB CONC 33.8 g/dL (33.0-35.0); MEAN PLATELET VOLUME 7.7 fL (7.4-11.0); MONOCYTES # (AUTO) 0.8 x10^3/uL (0.3-0.8); MONOCYTES % (AUTO) 5.7 % (0.0-13.0); NEUTROPHILS # (AUTO) 11.4 x10^3/uL (2.2-4.8); NEUTROPHILS % (AUTO) 80.3 % (42.0-75.0); PLATELET COUNT 411 X10^3/uL (150.0-450.0); RED CELL DISTRIBUTION WIDTH 15.2 % (11.6-16.5); WHITE BLOOD COUNT 14.1 X10^3/uL (3.6-10.0)
[2023-12-01 05:06] LABS: ALANINE AMINOTRANSFERASE 16 Units/L (12-78); ALBUMIN 2.2 g/dL (3.4-5.0); ALKALINE PHOSPHATASE 57 Units/L (46-116); ASPARTATE AMINO TRANSFERASE 16 Units/L (15-37); BLOOD UREA NITROGEN 7 mg/dL (7-18); CARBON DIOXIDE 33.5 mmol/L (21-32); CHLORIDE 100 mmol/L (98-107); COR CA(FOR HYPOALB) 9.4 mg/dL (8.5-10.1); COR NA(FOR HYPERGLY) 140 mmol/L (136-145); CREATININE 0.95 mg/dL (0.55-1.02); GLUCOSE 115 mg/dL (65-99); MAGNESIUM 1.7 mg/dL (2.0-2.9); SODIUM 140 mmol/L (136-145); TOTAL PROTEIN 5.8 g/dL (6.4-8.2); eGFR NON BLACK RACES > 60 (>60)
[2023-12-01 05:10] LABS: POTASSIUM 2.3 mmol/L (3.5-5.1)
[2023-12-01] MEDS ORDERED: CONSULT PHARMACY - POTASSIUM & MAGNESIUM XX SCH (06:00)
[2023-12-01] MEDS: NORVASC TAB 5 MG PO SCH (08:08)
[2023-12-01] MEDS: ASPIRIN EC 81 MG PO SCH (08:08)
[2023-12-01 08:23] VITALS: TEMP 97.9
[2023-12-01] MEDS: LR 1,000 ML IV 1,000 ML with POTASSIUM CHLORIDE INJ 40 MEQ VIAL 40 MEQ, MAGNESIUM SULFA... IV SCH (08:27)
[2023-12-01] MEDS ORDERED: MAG-OX TAB PO SCH ×2 (09:00→10:00)
[2023-12-01 09:03] VITALS: O2SAT 100
[2023-12-01 11:03] VITALS: BP 141/66; PULSE 83; RESP 13
--- NOTE | 2023-12-01 11:04 | W.DIS.FURT ---
Summary of Discharge Discharge Summary of Date Date of Exam: 12/01/23 Admission Date Date of Admission: 11/30/23 Admission Diagnosis Hospital Course: This is a 73 year old female with recent evaluation for rest pain of the left leg which required atherectomy and subsequent drug coated stenting of the left superficial femoral artery. She returned that afternoon of the initial procedure complaining of pain of her left leg and evaluation including CT scan suggested possible dissection of both iliac arteries. The patient was observed and did well and was brought back another time and had intravascular ultrasound carried out of both legs suggesting bilateral common iliac artery dissection and severe occlusive disease of the right common femoral artery proximally . There had been question post-procedure of a left popliteal problem which had been addressed at the initial procedure and follow-up arteriography showed there to be no problem on the left side distally. On November 29, yesterday, the patient underwent right femoral endarterectomy and patch angioplasty of the occlusion here and underwent bilateral commonly iliac and external iliac artery stenting to resolve the dissections and has done well. She has palpable pulses in both feet now. She has done well and is taking a regular diet. She will be discharged home on her usual medications including Xarelto and aspirin and will be given a prescription for Percocet, 5 milligram tablets 1 PO q 6 hrs PRN pain . She will follow up with Dr. Campos in 1 week. Vital Signs: Vital Signs (72 hours) 11/30/23 07:13 11/30/23 06:43 11/30/23 12:19 Temperature 99.0 F 97.5 F L Pulse Rate 86 77 Respiratory Rate 17 16 Blood Pressure 145/60 119/61 O2 Sat by Pulse Oximetry 98 98 Oxygen Delivery Method Room Air Room Air Room Air Oxygen Flow Rate FIO2% 11/30/23 12:29 11/30/23 12:34 11/30/23 12:39 Temperature Pulse Rate 73 79 75 Respiratory Rate 18 18 18 Blood Pressure 112/57 121/56 134/63 O2 Sat by Pulse Oximetry 97 99 99 Oxygen Delivery Method Nasal Cannula Nasal Cannula Nasal Cannula Oxygen Flow Rate FIO2% 11/30/23 12:44 11/30/23 12:49 11/30/23 12:24 Temperature Pulse Rate 72 70 74 Respiratory Rate 18 18 16 Blood Pressure 124/59 140/57 112/57 O2 Sat by Pulse Oximetry 100 99 96 Oxygen Delivery Method Nasal Cannula Nasal Cannula Room Air Oxygen Flow Rate FIO2% 11/30/23 12:31 11/30/23 13:00 11/30/23 15:00 Temperature Pulse Rate Respiratory Rate 18 20 Blood Pressure O2 Sat by Pulse Oximetry Oxygen Delivery Method Room Air Oxygen Flow Rate FIO2% 11/30/23 13:30 11/30/23 13:00 11/30/23 13:15 Temperature 98.3 F Pulse Rate 70 69 Respiratory Rate 21 19 Blood Pressure 142/64 162/72 O2 Sat by Pulse Oximetry 100 100 Oxygen Delivery Method Nasal Cannula Room Air Oxygen Flow Rate 2 FIO2% 11/30/23 13:30 11/30/23 13:45 11/30/23 14:00 Temperature Pulse Rate 68 66 67 Respiratory Rate 23 23 22 Blood Pressure 140/63 156/71 127/61 O2 Sat by Pulse Oximetry 100 100 100 Oxygen Delivery Method Oxygen Flow Rate FIO2% 11/30/23 15:00 11/30/23 13:06 11/30/23 13:15 Temperature Pulse Rate 80 71 68 Respiratory Rate 20 34 H 14 Blood Pressure 113/50 O2 Sat by Pulse Oximetry 100 100 100 Oxygen Delivery Method Room Air Oxygen Flow Rate FIO2% 11/30/23 13:15 11/30/23 13:30 11/30/23 13:30 Temperature Pulse Rate 68 Respiratory Rate 23 Blood Pressure 162/72 140/63 O2 Sat by Pulse Oximetry 100 Oxygen Delivery Method Oxygen Flow Rate FIO2% 11/30/23 13:45 11/30/23 13:45 11/30/23 14:00 Temperature Pulse Rate 66 Respiratory Rate 23 Blood Pressure 156/71 127/61 O2 Sat by Pulse Oximetry 100 Oxygen Delivery Method Oxygen Flow Rate FIO2% 11/30/23 14:00 11/30/23 14:15 11/30/23 14:15 Temperature Pulse Rate 67 74 Respiratory Rate 28 H 47 H Blood Pressure 132/58 O2 Sat by Pulse Oximetry 100 100 Oxygen Delivery Method Oxygen Flow Rate FIO2% 11/30/23 14:15 11/30/23 14:15 11/30/23 14:30 Temperature Pulse Rate 72 Respiratory Rate 47 H Blood Pressure 132/58 132/58 O2 Sat by Pulse Oximetry 100 Oxygen Delivery Method Oxygen Flow Rate FIO2% 11/30/23 14:30 11/30/23 14:45 11/30/23 14:45 Temperature Pulse Rate 72 Respiratory Rate 39 H Blood Pressure 135/61 134/62 O2 Sat by Pulse Oximetry 100 Oxygen Delivery Method Oxygen Flow Rate FIO2% 11/30/23 15:00 11/30/23 15:01 11/30/23 15:01 Temperature Pulse Rate 81 80 Respiratory Rate 29 H 34 H Blood Pressure 113/58 O2 Sat by Pulse Oximetry 100 100 Oxygen Delivery Method Oxygen Flow Rate FIO2% 11/30/23 15:15 11/30/23 15:30 11/30/23 15:45 Temperature Pulse Rate 71 78 78 Respiratory Rate 31 H 30 H 35 H Blood Pressure O2 Sat by Pulse Oximetry 100 100 100 Oxygen Delivery Method Oxygen Flow Rate FIO2% 11/30/23 16:00 11/30/23 16:00 11/30/23 16:15 Temperature Pulse Rate 73 71 Respiratory Rate 23 40 H Blood Pressure 136/58 O2 Sat by Pulse Oximetry 100 100 Oxygen Delivery Method Oxygen Flow Rate FIO2% 11/30/23 16:30 11/30/23 16:45 11/30/23 17:00 Temperature Pulse Rate 69 79 Respiratory Rate 23 29 H Blood Pressure 119/59 O2 Sat by Pulse Oximetry 100 98 Oxygen Delivery Method Oxygen Flow Rate FIO2% 11/30/23 17:00 11/30/23 17:15 11/30/23 17:30 Temperature Pulse Rate 83 71 86 Respiratory Rate 22 20 20 Blood Pressure O2 Sat by Pulse Oximetry 100 97 98 Oxygen Delivery Method Oxygen Flow Rate FIO2% 11/30/23 17:45 11/30/23 18:00 11/30/23 18:01 Temperature Pulse Rate 75 93 H 92 H Respiratory Rate 29 H 21 21 Blood Pressure O2 Sat by Pulse Oximetry 98 98 97 Oxygen Delivery Method Oxygen Flow Rate FIO2% 11/30/23 18:01 11/30/23 19:15 11/30/23 19:00 Temperature 98.2 F Pulse Rate 83 Respiratory Rate 24 38 H Blood Pressure 132/58 120/59 O2 Sat by Pulse Oximetry 99 Oxygen Delivery Method Room Air Oxygen Flow Rate FIO2% 11/30/23 20:00 11/30/23 19:00 11/30/23 21:00 Temperature Pulse Rate 81 81 Respiratory Rate 16 37 H Blood Pressure 117/56 113/55 O2 Sat by Pulse Oximetry 99 99 Oxygen Delivery Method Room Air Room Air Room Air Oxygen Flow Rate FIO2% 11/30/23 20:15 12/01/23 00:02 11/30/23 21:50 Temperature Pulse Rate Respiratory Rate 16 31 H Blood Pressure O2 Sat by Pulse Oximetry Oxygen Delivery Method Nasal Cannula Oxygen Flow Rate 2 FIO2% 28 11/30/23 22:00 11/30/23 23:00 12/01/23 00:00 Temperature 98.1 F Pulse Rate 84 80 86 Respiratory Rate 34 H 20 34 H Blood Pressure 103/53 108/53 123/59 O2 Sat by Pulse Oximetry 99 98 98 Oxygen Delivery Method Room Air Room Air Room Air Oxygen Flow Rate FIO2% 12/01/23 01:00 12/01/23 02:00 12/01/23 03:00 Temperature Pulse Rate 82 80 76 Respiratory Rate 45 H 17 38 H Blood Pressure 123/59 122/57 122/58 O2 Sat by Pulse Oximetry 97 98 99 Oxygen Delivery Method Room Air Room Air Room Air Oxygen Flow Rate FIO2% 12/01/23 01:02 12/01/23 04:10 12/01/23 04:00 Temperature 98.4 F Pulse Rate 70 Respiratory Rate 25 H 26 H 22 Blood Pressure 129/60 O2 Sat by Pulse Oximetry 97 Oxygen Delivery Method Room Air Oxygen Flow Rate FIO2% 12/01/23 05:00 12/01/23 06:00 12/01/23 07:00 Temperature Pulse Rate 83 79 79 Respiratory Rate 40 H 15 34 H Blood Pressure 116/58 121/57 O2 Sat by Pulse Oximetry 97 100 99 Oxygen Delivery Method Room Air Room Air Oxygen Flow Rate FIO2% 12/01/23 07:00 12/01/23 07:15 12/01/23 07:30 Temperature Pulse Rate 74 93 H Respiratory Rate 27 H 50 H Blood Pressure 94/50 O2 Sat by Pulse Oximetry 99 99 Oxygen Delivery Method Oxygen Flow Rate FIO2% 12/01/23 07:45 12/01/23 08:00 12/01/23 08:01 Temperature 97.9 F Pulse Rate 80 77 Respiratory Rate 20 17 Blood Pressure 125/60 O2 Sat by Pulse Oximetry 100 100 Oxygen Delivery Method Oxygen Flow Rate FIO2% 12/01/23 08:01 12/01/23 09:18 12/01/23 08:21 Temperature Pulse Rate 80 Respiratory Rate 34 H 16 Blood Pressure O2 Sat by Pulse Oximetry 98 Oxygen Delivery Method Room Air Oxygen Flow Rate FIO2% 12/01/23 08:15 12/01/23 08:30 12/01/23 08:45 Temperature Pulse Rate 82 80 80 Respiratory Rate 33 H 15 22 Blood Pressure O2 Sat by Pulse Oximetry 100 100 100 Oxygen Delivery Method Oxygen Flow Rate FIO2% 12/01/23 09:00 12/01/23 09:00 12/01/23 09:15 Temperature Pulse Rate 78 86 Respiratory Rate 16 33 H Blood Pressure 131/63 O2 Sat by Pulse Oximetry 100 89 L Oxygen Delivery Method Oxygen Flow Rate FIO2% 12/01/23 09:30 12/01/23 09:45 12/01/23 10:00 Temperature Pulse Rate 73 78 Respiratory Rate 15 39 H Blood Pressure 147/63 O2 Sat by Pulse Oximetry 100 99 Oxygen Delivery Method Oxygen Flow Rate FIO2% 12/01/23 10:00 12/01/23 10:16 Temperature Pulse Rate 80 Respiratory Rate 16 16 Blood Pressure O2 Sat by Pulse Oximetry 100 Oxygen Delivery Method Oxygen Flow Rate FIO2% Labs: Laboratory Last Values WBC 14.1 X10^3/uL (3.6-10.0) H 12/01/23 04:05 RBC 2.80 X10^6/uL (3.5-5.4) L 12/01/23 04:05 Hgb 7.6 g/dL (12.0-16.0) L 12/01/23 04:05 Hct 22.4 % (36.0-47.0) L 12/01/23 04:05 MCV 80.0 fL (80.0-100.0) 12/01/23 04:05 MCH 27.0 pg (27.0-34.0) 12/01/23 04:05 MCHC 33.8 g/dL (33.0-35.0) 12/01/23 04:05 RDW 15.2 % (11.6-16.5) 12/01/23 04:05 Plt Count 411 X10^3/uL (150.0-450.0) 12/01/23 04:05 MPV 7.7 fL (7.4-11.0) 12/01/23 04:05 Neut % (Auto) 80.3 % (42.0-75.0) H 12/01/23 04:05 Lymph % (Auto) 11.2 % (21.0-51.0) L 12/01/23 04:05 Reagan % (Auto) 5.7 % (0.0-13.0) 12/01/23 04:05 Eos % (Auto) 1.9 % (0.9-2.9) 12/01/23 04:05 Baso % (Auto) 0.9 % (0.2-1.0) 12/01/23 04:05 Neut # (Auto) 11.4 x10^3/uL (2.2-4.8) H 12/01/23 04:05 Lymph # (Auto) 1.6 X10^3/uL (1.3-2.9) 12/01/23 04:05 Reagan # (Auto) 0.8 x10^3/uL (0.3-0.8) 12/01/23 04:05 Eos # (Auto) 0.3 x10^3/uL (0.0-0.2) H 12/01/23 04:05 Baso # (Auto) 0.1 X10^3/uL (0.0-0.1) 12/01/23 04:05 Absolute Nucleated RBC 0.0 /100WBC 12/01/23 04:05 Sodium 140 mmol/L (136-145) 12/01/23 04:05 Corrected Sodium 140 mmol/L (136-145) 12/01/23 04:05 Potassium 2.3 mmol/L (3.5-5.1) L* 12/01/23 04:05 Chloride 100 mmol/L (98-107) 12/01/23 04:05 Carbon Dioxide 33.5 mmol/L (21-32) H 12/01/23 04:05 BUN 7 mg/dL (7-18) 12/01/23 04:05 Creatinine 0.95 mg/dL (0.55-1.02) 12/01/23 04:05 Est GFR (MDRD) Af Amer > 60 (>60) 12/01/23 04:05 Est GFR (MDRD) Non-Af > 60 (>60) 12/01/23 04:05 Glucose 115 mg/dL (65-99) H 12/01/23 04:05 Calcium 8.0 mg/dL (8.5-10.1) L 12/01/23 04:05 Corrected Calcium 9.4 mg/dL (8.5-10.1) 12/01/23 04:05 Magnesium 1.7 mg/dL (2.0-2.9) L 12/01/23 04:05 Total Bilirubin 0.30 mg/dL (0.2-1.0) 12/01/23 04:05 AST 16 Units/L (15-37) 12/01/23 04:05 ALT 16 Units/L (12-78) 12/01/23 04:05 Alkaline Phosphatase 57 Units/L (46-116) 12/01/23 04:05 Total Protein 5.8 g/dL (6.4-8.2) L 12/01/23 04:05 Albumin 2.2 g/dL (3.4-5.0) L 12/01/23 04:05 Globulin 3.6 g/dL (2.5-4.5) 12/01/23 04:05 Albumin/Globulin Ratio 0.6 Ratio (1.1-2.1) L 12/01/23 04:05 Blood Type A POSITIVE 11/30/23 07:25 Antibody Screen Negative 11/30/23 07:25 Reason For Visit: B/L ILIAC ARTERY DISSECTION Discharge Date Discharge Date: 12/01/23 Discharge Diagnosis All Active Problems (Updated 11/10/23 @ 13:08 by Jeremy Wing) Leg pain, bilateral (Acute) Atypical chest pain (Acute) Hypertension (Acute) Altered mental status (Acute) Non-ST elevation LA (NSTEMI) (Acute) Dehydration (Acute) Lower extremity weakness (Acute) Mixed hyperlipidemia (Acute) Annual physical exam (Acute) History of IBS (Acute) KALLIE (generalized anxiety disorder) (Acute) Insomnia (Acute) Bronchitis (Acute) Hypokalemia (Acute) Acute exacerbation of chronic obstructive pulmonary disease (COPD) (Acute) Plan of Treatment: Continue with present treatment and follow up plan. Pt is to keep follow up appointment as instructed and take medications as ordered. Discharge Medications Discharge Medications: lisinopril Allergy (Verified 11/16/23 16:37) pollen extracts Allergy (Verified 11/16/23 16:37) CONTINUE taking the following medications aspirin 81 mg tablet 81 mg PO QDAY 11/30/23 [History] eszopiclone 3 mg tablet (Lunesta) 3 mg PO QPM 11/30/23 [History] rivaroxaban 2.5 mg tablet (Xarelto) 2.5 mg PO BID 11/30/23 [History] Percocet , 5 mg , 1 po q 6hr PRN pain Discharge Disposition Assessment: see hospital course Discharge Plan Discharge Plan Hospital Course: This is a 73 year old female with recent evaluation for rest pain of the left leg which required atherectomy and subsequent drug coated stenting of the left superficial femoral artery. She returned that afternoon of the initial procedure complaining of pain of her left leg and evaluation including CT scan suggested possible dissection of both iliac arteries. The patient was observed and did well and was brought back another time and had intravascular ultrasound carried out of both legs suggesting bilateral common iliac artery dissection and severe occlusive disease of the right common femoral artery proximally . There had been question post-procedure of a left popliteal problem which had been addressed at the initial procedure and follow-up arteriography showed there to be no problem on the left side distally. On November 29, yesterday, the patient underwent right femoral endarterectomy and patch angioplasty of the occlusion here and underwent bilateral commonly iliac and external iliac artery stenting to resolve the dissections and has done well. She has palpable pulses in both feet now. She has done well and is taking a regular diet. She will be discharged home on her usual medications including Xarelto and aspirin and will be given a prescription for Percocet, 5 milligram tablets 1 PO q 6 hrs PRN pain . She will follow up with Dr. Campos in 1 week. Patient Disposition: 01 HOME, SELF-CARE Condition: Stable Health Concerns: Post Hospitalization: new medications and changes needed to prevent readmission or further decline. Pt educated and given instructions on all concerns. Care Plan Goals: Problem: Pain/Alteration in Comfort Goal: Improve/ Resolve Pain; Achieve Pain Tolerance Instructions: Take pain medications as prescribed. Contact your primary care provider if your pain is unrelieved or worsens. Follow up with primary care provider as directed. Plan of Treatment: Continue with present treatment and follow up plan. Pt is to keep follow up appointment as instructed and take medications as ordered. Assessment: see hospital course Prescription drug monitoring program results: PDMP reviewed with concerns identified Prescriptions: New oxycodone-acetaminophen [Percocet] 5-325 mg tablet 1 tab PO Q6H MDD 4 PRNQty: 30 0RF Continued amlodipine 5 mg tablet 5 mg PO QDAY Qty: 90 0RF eszopiclone [Lunesta] 3 mg tablet 3 mg PO QPM Xarelto 2.5 mg tablet 2.5 mg PO BID aspirin 81 mg Tablet 81 mg PO QDAY Orders to Discharge Patient Discharge Orders: Discharge (Routine); Ordered 12/01/23 Ordered By: Andrés Campos Follow ups/Referrals Follow ups/Referrals: Andrés Campos [Primary Care Provider] - 12/15/23 1:00 pm Instructions Instructions: Steps to Quit Smoking, [id number], Endovascular Therapy for Peripheral Vascular Disease, Care After, Pain Medicine Instructions, [id number] Activity Restrictions/Additional Instructions: Pain medications sent by Dr. Campos to pharmacy. Stand Alone Forms: Post Hospital Follow Up Care
--- NOTE | 2023-12-06 19:25 | DR.OPNOTE ---
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 Both groins and the upper abdomen prepped and draped in sterile fashion. Patient was given intravenous sedation supervised by myself. Time out for the procedure obtained. Vertical incision made in the right groin with a number 15 blade knife and sharp dissection carried down identifying the common femoral artery, superficial femoral artery and profounda femoris arteries . Vessel loops placed around all of these. Patient was administered 5,000 units of IV heaprin . The commpon femoral artery was clamped and the other vessels controlled with the vessel loops. The artery opened with a number 11 knife blad e and Pott's scissors and endarterectomy carried out with a [place] dissector. The intima was tacked up proximally. The arteriotomy was closed using a 0.8 by 8 cm long bovine pericardial patch sewn in position with running 5-0 Prolene suture. Flow was reestablished to the right leg. A pursestring suture of 5-0 Prolene suture placed in the patch and the needle placed through this and a 0.012 inch guidewire directed cephalad. Micro sheath placed over the guide wire into the artery and the small guide wire exchanged for a 0.035 inch Advantage [place] wire taking it all the way into the aorta. The micro sheath exchanged for a 7 Fr vascular sheath .Ultrasound used to identify the left femoral artery and the skin overlying it infiltrated with 0.5% Marcaine . Ultrasound used to guide puncture of the left common femoral artery and a 0.012 inch guide wire placed. Incision made over the guide wire at the skin edge with a number 11 knife blade and a micro sheath placed over the guide wire into the left femoral artery . The small guidewire exchanged for a 0.035 inch Advantage [place] wire which was directed all the way into the aorta The micro sheath exchanged for a 7 Fr vascular sheath . On the left side an Omni catheter was placed over the guide wire into the aorta and diagnostic aortogram carried out suggesting the level of the the dissections of both common iliac arteries with significant stenosis of the distal left externally iliac artery. Over the wire on each side ,which has been changed to 0.018 inch wires ,we performed intravascular ultrasound confirming the extent of the dissection and the size of the vessel on each side . On the right side proximally we placed a 10 mm by 37 mm [employer] biliary stent and on the left side a 9 millimetre by 57 m illimetre stent. These were balloon dilated with kissing balloons. Additional stent placed distal this on the right side measuring 10 by 57 millimeters. Additional stent placed on the left side measuring 8 millimeters x 57 millimeters. All of these were dilated with a balloon. The significant stenosis of the left external iliac artery was then treated with a [employer] Natty 7 millimetre by 60 millimetre drug eluting stint which was dilated with a 7 millimeter balloon. Post procedure arteriogram showed excellent result with good flow into the legs. Repeat intravascular ultrasound showed resolution of the dissections bilaterally. Patient had been given an additional dose of 3,000 units of intravenous Heparin at one hour. The sheath removed from the left side and over the wire we placed an Angioseal device used to close the puncture. On the right side the sheath was removed from the patch and the purse string tied in position stopping any blood leakage. The right groin irrigated with saline . 30 mg of Protomine given to reverse the heparin The right groin incision closed with 2 layers of running 3-0 Vicryl suture and the skin closed with skin [place]. Patient taken to the ICU for continued evaluation. Type of Anesthesia: Local (0.5% Marcaine ) Findings: as above Type of Fluids Used:: Lactated Ringers Total Amount of Fluid Infused:: 1600cc Urine output: 450 cc EBL: 250 cc Hardware: 10x 37 mm stent, 10x 57 mm stent, 9x 57 mm stent , 8x 57 mm stent, 7x 60 mm Natty drug eluting stent Complications:: none Needle/Sponge Count:: correct Disposition/Condition: Pt. tolerated procedure without difficulty. Taken to [facility] in stable condition.
== END 2023-12-01 11:40 | disposition home or self-care (01) ==
LOC: INTOOBSV 06:23 → ICU 06:23
PROVIDERS: ADMIT Surgery; ATTEND Surgery
DX: I70.223 Atherosclerosis of native arteries of extremities with rest pain, bilateral legs; Z86.73 Personal history of transient ischemic attack (TIA), and cerebral infarction without residual deficits; E78.5 Hyperlipidemia, unspecified; Z72.0 Tobacco use; M79.605 Pain in left leg; M79.604 Pain in right leg; E87.6 Hypokalemia; Z01.810 Encounter for preprocedural cardiovascular examination; I10 Essential (primary) hypertension

== ENCOUNTER 2023-12-15 13:45 | Inpatient (IN) ==
[2023-12-15] MEDS: ZOFRAN INJ 4 MG VIAL IVP PRN (16:11)
[2023-12-15] MEDS: LR 1,000 ML IV 1,000 ML IV SCH (16:12)
[2023-12-15] MEDS: ZOSYN VIAL 3.375 GRAMS 3.375 G in NS 100 ML IV 100 ML IV SCH (16:12)
[2023-12-15] MEDS: DILAUDID INJ IVP PRN (16:12)
[2023-12-15 16:37] LABS: BASOPHILS # (AUTO) 0.1 X10^3/uL (0.0-0.1); BASOPHILS % (AUTO) 0.7 % (0.2-1.0); EOSINOPHILS # (AUTO) 0.1 x10^3/uL (0.0-0.2); EOSINOPHILS % (AUTO) 1.4 % (0.9-2.9); HEMATOCRIT 30.6 % (36.0-47.0); LYMPHOCYTES # (AUTO) 1.5 X10^3/uL (1.3-2.9); LYMPHOCYTES % (AUTO) 16.5 % (21.0-51.0); MEAN CORPUSCULAR HEMOGLOBIN 26.5 pg (27.0-34.0); MEAN CORPUSCULAR HGB CONC 32.6 g/dL (33.0-35.0); MEAN CORPUSCULAR VOLUME 81.3 fL (80.0-100.0); MEAN PLATELET VOLUME 7.4 fL (7.4-11.0); MONOCYTES # (AUTO) 0.6 x10^3/uL (0.3-0.8); MONOCYTES % (AUTO) 7.2 % (0.0-13.0); NEUTROPHILS # (AUTO) 6.6 x10^3/uL (2.2-4.8); NEUTROPHILS % (AUTO) 74.2 % (42.0-75.0); PLATELET COUNT 495 X10^3/uL (150.0-450.0); RED BLOOD COUNT 3.76 X10^6/uL (3.5-5.4); RED CELL DISTRIBUTION WIDTH 16.9 % (11.6-16.5); WHITE BLOOD COUNT 8.9 X10^3/uL (3.6-10.0)
[2023-12-15 16:46] VITALS: BMI 18.9
[2023-12-15 16:58] LABS: BLOOD UREA NITROGEN 7 mg/dL (7-18); CALCIUM 9.3 mg/dL (8.5-10.1); CHLORIDE 100 mmol/L (98-107); GLUCOSE 99 mg/dL (65-99); SODIUM 144 mmol/L (136-145); eGFR NON BLACK RACES > 60 (>60)
[2023-12-15 17:01] LABS: POTASSIUM 2.4 mmol/L (3.5-5.1)
[2023-12-15] MEDS: NICOTINE PATCH TD SCH (17:15)
[2023-12-15] MEDS: K-RIDER 10 MEQ/100 ML WATER 10 MEQ/100 ML BAG IV SCH (18:00)
[2023-12-15] MEDS ORDERED: CONSULT PHARMACY - POTASSIUM & MAGNESIUM XX SCH (18:00)
[2023-12-15] MEDS: K-DUR TAB 20 MEQ PO SCH (18:38)
[2023-12-15] MEDS: SANTYL EXT SCH (18:38)
[2023-12-15] MEDS: XARELTO PO SCH (20:26)
[2023-12-15] MEDS: CHECK PATCH XX SCH (20:28)
[2023-12-15] MEDS: AMBIEN PO PRN (21:25)
[2023-12-16 05:09] LABS: BASOPHILS # (AUTO) 0.1 X10^3/uL (0.0-0.1); BASOPHILS % (AUTO) 1.2 % (0.2-1.0); EOSINOPHILS # (AUTO) 0.3 x10^3/uL (0.0-0.2); EOSINOPHILS % (AUTO) 3.5 % (0.9-2.9); HEMATOCRIT 27.4 % (36.0-47.0); HEMOGLOBIN 8.9 g/dL (12.0-16.0); LYMPHOCYTES % (AUTO) 26.2 % (21.0-51.0); MEAN CORPUSCULAR HEMOGLOBIN 26.7 pg (27.0-34.0); MEAN CORPUSCULAR HGB CONC 32.5 g/dL (33.0-35.0); MEAN CORPUSCULAR VOLUME 82.3 fL (80.0-100.0); MEAN PLATELET VOLUME 7.3 fL (7.4-11.0); MONOCYTES # (AUTO) 0.6 x10^3/uL (0.3-0.8); MONOCYTES % (AUTO) 7.4 % (0.0-13.0); NEUTROPHILS # (AUTO) 4.7 x10^3/uL (2.2-4.8); NEUTROPHILS % (AUTO) 61.7 % (42.0-75.0); PLATELET COUNT 450 X10^3/uL (150.0-450.0); RED BLOOD COUNT 3.33 X10^6/uL (3.5-5.4); WHITE BLOOD COUNT 7.7 X10^3/uL (3.6-10.0)
[2023-12-16 05:20] LABS: ALANINE AMINOTRANSFERASE 10 Units/L (12-78); ALBUMIN 2.6 g/dL (3.4-5.0); ALKALINE PHOSPHATASE 62 Units/L (46-116); ASPARTATE AMINO TRANSFERASE 11 Units/L (15-37); BLOOD UREA NITROGEN 8 mg/dL (7-18); CALCIUM 8.3 mg/dL (8.5-10.1); CARBON DIOXIDE 35.2 mmol/L (21-32); CHLORIDE 105 mmol/L (98-107); COR CA(FOR HYPOALB) 9.4 mg/dL (8.5-10.1); CREATININE 0.98 mg/dL (0.55-1.02); GLUCOSE 94 mg/dL (65-99); POTASSIUM 3.2 mmol/L (3.5-5.1); SODIUM 145 mmol/L (136-145); TOTAL PROTEIN 6.7 g/dL (6.4-8.2); eGFR NON BLACK RACES 59 (>60)
[2023-12-16] MEDS: CONSULT PHARMACY - POTASSIUM & MAGNESIUM XX SCH (07:40)
[2023-12-16] MEDS ORDERED: MAG-OX TAB PO SCH (09:00)
[2023-12-16] MEDS ORDERED: K-DUR TAB 20 MEQ PO SCH (09:00)
[2023-12-16] MEDS: NORVASC TAB 5 MG PO SCH (09:04)
[2023-12-16] MEDS: PROTONIX TAB 40 MG PO SCH (09:33)
[2023-12-16] MEDS: ASPIRIN 81 MG CHEWTAB PO SCH (09:33)
[2023-12-16] MEDS: SANTYL EXT SCH (09:34)
[2023-12-16] MEDS: NS 500 ML IV 500 ML with POTASSIUM CHLORIDE INJ 40 MEQ VIAL 40 MEQ, MAGNESIUM SULFATE 5... IV ONE (09:36)
[2023-12-16] MEDS: NS 250 ML IV 25 ML IV PRN (14:06)
--- NOTE | 2023-12-16 15:12 | NOTE.SOAP ---
Soap Note Note for Day of Date of Exam: 12/16/23 Subjective Data Subjective Data: Hospital day # r 1 after admission for infected right groin incision after right femoral endarterectomy and Patch angioplasty. Patient doing well. Objective Data Temperature: 98.1 F Pulse Rate: 77 Respiratory Rate: 30 Blood Pressure: 103/54 O2 Sat by Pulse Oximetry: 94 Objective Data: Wound open right gron, 5cm x 1.5x.1,0 cm. purulent draianage and no cellulitis. Good pulses both feet, Gram stain wound , gram +cocci Assessment Assessment: right groin wound infection Plan Plan: Continued IV Zosyn, await cultures.
--- NOTE | 2023-12-16 18:09 | DR.H&P ---
H&P History & Physical for Day of: H&P Date: 12/16/23 Chief Complaint Chief Complaint: Infection of right groin incision History of Present Illness History of Present Illness: This is a 73 year old female with long history of to bacco abuse who presented originally several weeks ago with rest pain of both [place]ere extremities. She had undergone atherectomy and and Drug coated stenting of the entire left superficial femoral artery complicated by bilateral common iliac artery dissection. Ultimately required b/l common iliac artery stenting and bilateral external iliac artery stenting. She had significant occlusion of the right common femoral artery requiring endarterectomy and Patch angioplasty . She presented day of admission with resolution of rest pain but purulent drainage from the right groin incision. There was no evidence of cellulitis. She denied fever.She continues to smoke cigarettes. Past Medical History Past Medical History: Hypertension Additional Medical History: tobacco abuse Past Surgical History Surgical History: Hysterectomy Social History Does patient currently use any type of tobacco product: Yes Type of Tobacco Use: Cigarettes How many years tobacco product used: 20 Alcohol Use: None Drug Use: None Medications Home Medications: Home Medications Medication Instructions Recorded Confirmed Type amlodipine 5 mg tablet 5 mg PO QDAY 12/15/23 12/15/23 History aspirin 81 mg chewable tablet 81 mg PO QDAY 12/15/23 12/15/23 History daridorexant 50 mg tablet (Quviviq) 50 mg PO QDAY 12/15/23 12/15/23 History rivaroxaban 2.5 mg tablet (Xarelto) 2.5 mg PO BID 12/15/23 12/15/23 History Allergies Allergies Allergy/AdvReac Type Severity Reaction Status Date / Time lisinopril Allergy Verified 12/15/23 15:28 pollen extracts Allergy Verified 12/15/23 15:28 Labs 12/16/23 04:51 12/16/23 04:51 Labs: 12/15/23 16:15 Groin Wound Gram Stain - Final 12/15/23 16:15 Groin Wound Culture - Preliminary Laboratory WBC 7.7 X10^3/uL (3.6-10.0) 12/16/23 04:51 RBC 3.33 X10^6/uL (3.5-5.4) L 12/16/23 04:51 Hgb 8.9 g/dL (12.0-16.0) L 12/16/23 04:51 Hct 27.4 % (36.0-47.0) L 12/16/23 04:51 MCV 82.3 fL (80.0-100.0) 12/16/23 04:51 MCH 26.7 pg (27.0-34.0) L 12/16/23 04:51 MCHC 32.5 g/dL (33.0-35.0) L 12/16/23 04:51 RDW 17.0 % (11.6-16.5) H 12/16/23 04:51 Plt Count 450 X10^3/uL (150.0-450.0) 12/16/23 04:51 MPV 7.3 fL (7.4-11.0) L 12/16/23 04:51 Neut % (Auto) 61.7 % (42.0-75.0) 12/16/23 04:51 Lymph % (Auto) 26.2 % (21.0-51.0) 12/16/23 04:51 [place] % (Auto) 7.4 % (0.0-13.0) 12/16/23 04:51 Eos % (Auto) 3.5 % (0.9-2.9) H 12/16/23 04:51 Baso % (Auto) 1.2 % (0.2-1.0) H 12/16/23 04:51 Neut # (Auto) 4.7 x10^3/uL (2.2-4.8) 12/16/23 04:51 Lymph # (Auto) 2.0 X10^3/uL (1.3-2.9) 12/16/23 04:51 [place] # (Auto) 0.6 x10^3/uL (0.3-0.8) 12/16/23 04:51 Eos # (Auto) 0.3 x10^3/uL (0.0-0.2) H 12/16/23 04:51 Baso # (Auto) 0.1 X10^3/uL (0.0-0.1) 12/16/23 04:51 Absolute Nucleated RBC 0.1 /100WBC 12/16/23 04:51 Sodium 145 mmol/L (136-145) 12/16/23 04:51 Corrected Sodium TNP 12/16/23 04:51 Potassium 3.2 mmol/L (3.5-5.1) L 12/16/23 04:51 Chloride 105 mmol/L (98-107) 12/16/23 04:51 Carbon Dioxide 35.2 mmol/L (21-32) H 12/16/23 04:51 BUN 8 mg/dL (7-18) 12/16/23 04:51 Creatinine 0.98 mg/dL (0.55-1.02) 12/16/23 04:51 Est GFR (MDRD) Af Amer > 60 (>60) 12/16/23 04:51 Est GFR (MDRD) Non-Af 59 (>60) 12/16/23 04:51 Glucose 94 mg/dL (65-99) 12/16/23 04:51 Calcium 8.3 mg/dL (8.5-10.1) L 12/16/23 04:51 Corrected Calcium 9.4 mg/dL (8.5-10.1) 12/16/23 04:51 Magnesium 1.9 mg/dL (2.0-2.9) L 12/16/23 04:51 Total Bilirubin 0.30 mg/dL (0.2-1.0) 12/16/23 04:51 AST 11 Units/L (15-37) L 12/16/23 04:51 ALT 10 Units/L (12-78) L 12/16/23 04:51 Alkaline Phosphatase 62 Units/L (46-116) 12/16/23 04:51 Total Protein 6.7 g/dL (6.4-8.2) 12/16/23 04:51 Albumin 2.6 g/dL (3.4-5.0) L 12/16/23 04:51 Globulin 4.1 g/dL (2.5-4.5) 12/16/23 04:51 Albumin/Globulin Ratio 0.6 Ratio (1.1-2.1) L 12/16/23 04:51 Review of Systems Constitutional: See HPI Eyes: No Symptoms Reported ENT: No Symptoms Reported Respiratory: No Symptoms Reported Cardiovascular: No Symptoms Reported Gastrointestinal: No Symptoms Reported Musculoskeletal: No Symptoms Reported Skin: No Symptoms Reported Neurological: No Symptoms Reported Physical Exam Vital Signs: Vital Signs Temperature 97.9 F Temperature 98.1 F Pulse Rate 72 Pulse Rate 77 Pulse Rate 77 Pulse Rate 77 Pulse Rate 76 Pulse Rate 74 Pulse Rate 73 Pulse Rate 79 Respiratory Rate 12 Respiratory Rate 30 Respiratory Rate 24 Respiratory Rate 18 Respiratory Rate 16 Respiratory Rate 20 Respiratory Rate 26 Respiratory Rate 14 Respiratory Rate 15 Respiratory Rate 19 Respiratory Rate 18 Respiratory Rate 33 Blood Pressure 103/54 Blood Pressure 119/79 Blood Pressure 116/59 Blood Pressure 105/52 Blood Pressure 105/52 Blood Pressure 112/55 Blood Pressure 111/53 Blood Pressure 111/53 O2 Sat by Pulse Oximetry 94 O2 Sat by Pulse Oximetry 94 O2 Sat by Pulse Oximetry 94 O2 Sat by Pulse Oximetry 95 O2 Sat by Pulse Oximetry 94 O2 Sat by Pulse Oximetry 94 O2 Sat by Pulse Oximetry 95 O2 Sat by Pulse Oximetry 96 Oriented: Normal, Time, Person, Place and Other (Patient is thin and elderly ) Eyes: Normal Ear: Normal Nose: Normal Throat: Normal Respiratory: Clear Throughout Cardiovascular: Normal and Other (palpable femoral pulses bilaterally, palpable distal pulses bilaterally, ) : Normal Auscultation: Bowel Sounds: Normal Palpation: Normal Tenderness: Normal Skin: Other (5x 1.5x1.0cm purulent wound right groin aleksandra removed and Santyl placed in the wound ) Musculoskeletal: Normal Psychiatric: Anxiety Mood Description: Angry and Anxious Affect: Anxious Speech Pattern: Clear and Appropriate Assessment/Plan (1) Postoperative wound infection: Status: Acute Plan: observe, IV antibiotics, culture wound, local wound care (2) Essential (primary) hypertension: Status: Acute Plan: Home medications (3) Tobacco abuse: Status: Acute Plan: nicotine patch (4) Atherosclerosis of [place] arteries of extremities with rest pain, right leg: Status: Acute Plan: continue Xarelto and aspirin, monitor leg flow arterial (5) Atherosclerosis of [place] arteries of extremities with rest pain, left leg: Status: Acute Plan: resolved and stable, continues Xarelto and aspirin Review H&P Reviewed: Yes Patient was examined?: Yes
[2023-12-16] MEDS ORDERED: LEXAPRO ONE (20:08)
[2023-12-16] MEDS: LEXAPRO PO SCH (20:16)
[2023-12-16] MEDS: MELATONIN PO SCH (20:16)
--- NOTE | 2023-12-16 22:44 | DR.CONSULT ---
CONSULT Consultation for Day of: Date: 12/15/23 Chief Complaint Chief Complaint: Right leg infection Allergies Allergies Allergy/AdvReac Type Severity Reaction Status Date / Time lisinopril Allergy Verified 12/15/23 15:28 pollen extracts Allergy Verified 12/15/23 15:28 History of Present Illness History of Present Illness: Patient is a 73-year-old female with a past medical history of hypertension, insomnia, and peripheral vascular disease admitted for right wound infection of the leg. Medicine consulted for medical management. She had recently had vascular surgery that was atherectomy and complete stenting of left occluded superficial femoral artery complicated by bilateral iliac artery dissection ultimately requiring stenting both common iliac and both external iliac arteries with common right femoral endarterectomy and patch angioplasty. She does have a smoking history. She reports that wound is not healing and that there is a purulent discharge now. Denies fevers, chills. Labs/imaging: WBC 8.9, hemoglobin 10, platelets 495, sodium 144, potassium 2.4, creatinine 0.90, glucose 99. Will admit patient for postoperative wound infection of the right leg. Will get cultures of wound and start on IV antibiotics Zosyn. Restart home medications. Continue with IV fluids LR at 80 mL/h. Will order nicotine patch. Pain control with Dilaudid as needed. Will defer all other wound care management to vascular surgery. Otherwise continue with current treatment plan. Continue closely monitor, replete electrolytes per protocol. Monitor and follow-up labs in the morning. Time spent on clinical assessment, reviewing labs and imaging, decision making, and documentation greater than 45 minutes. Past Medical History Past Medical History: Hypertension Past Surgical History Surgical History: Hysterectomy Social History Does patient currently use any type of tobacco product: Yes Type of Tobacco Use: Cigarettes How many years tobacco product used: 20 Alcohol Use: None Drug Use: None Medications Home Medications: lisinopril Allergy (Verified 12/15/23 15:28) pollen extracts Allergy (Verified 12/15/23 15:28) CONTINUE taking the following medications amlodipine 5 mg tablet 5 mg PO QDAY 12/15/23 [History] aspirin 81 mg chewable tablet 81 mg PO QDAY 12/15/23 [History] daridorexant 50 mg tablet (Quviviq) 50 mg PO QDAY 12/15/23 [History] rivaroxaban 2.5 mg tablet (Xarelto) 2.5 mg PO BID 12/15/23 [History] Review of Systems Constitutional: No Symptoms Reported Eyes: No Symptoms Reported ENT: No Symptoms Reported Respiratory: No Symptoms Reported Cardiovascular: No Symptoms Reported Gastrointestinal: No Symptoms Reported Genitourinary: No Symptoms Reported Musculoskeletal: Leg Pain (right wound infection) Skin: Wound (Right leg) Neurological: No Symptoms Reported Physical Exam Vital Signs: Vital Signs Temperature 98.1 F Temperature 98.0 F Pulse Rate 79 Pulse Rate 76 Pulse Rate 77 Pulse Rate 77 Pulse Rate 75 Pulse Rate 76 Pulse Rate 77 Pulse Rate 74 Pulse Rate 75 Pulse Rate 71 Respiratory Rate 18 Respiratory Rate 33 Respiratory Rate 20 Respiratory Rate 12 Respiratory Rate 30 Respiratory Rate 12 Respiratory Rate 20 Respiratory Rate 18 Respiratory Rate 19 Respiratory Rate 19 Respiratory Rate 21 Respiratory Rate 18 Respiratory Rate 28 Blood Pressure 111/53 Blood Pressure 111/53 Blood Pressure 102/54 Blood Pressure 104/57 Blood Pressure 104/57 Blood Pressure 103/54 Blood Pressure 99/57 Blood Pressure 115/56 Blood Pressure 119/56 Blood Pressure 117/57 Blood Pressure 101/58 Blood Pressure 111/52 O2 Sat by Pulse Oximetry 96 O2 Sat by Pulse Oximetry 94 O2 Sat by Pulse Oximetry 96 O2 Sat by Pulse Oximetry 94 O2 Sat by Pulse Oximetry 93 O2 Sat by Pulse Oximetry 93 O2 Sat by Pulse Oximetry 95 O2 Sat by Pulse Oximetry 95 O2 Sat by Pulse Oximetry 100 O2 Sat by Pulse Oximetry 100 Oriented: Normal Eyes: Normal Throat: Normal Respiratory: Clear Throughout Cardiovascular: Normal : Normal Auscultation: Bowel Sounds: Normal Palpation: Normal Tenderness: Normal Skin: Normal Musculoskeletal: Leg (Right open wound with yellow discharge) Psychiatric: Normal Mood Description: Calm Speech Pattern: Clear Plan (1) Postoperative wound infection: Status: Acute Plan: Will obtain wound culture. Continue with IV antibiotics Zosyn. (2) Atherosclerosis of [place] arteries of extremities with rest pain, left leg: Status: Acute (3) Atherosclerosis of [place] arteries of extremities with rest pain, right leg: Status: Acute (4) Tobacco abuse: Status: Acute (5) Essential (primary) hypertension: Status: Acute (6) Mixed hyperlipidemia: Status: Acute (7) Insomnia: Status: Acute
--- NOTE | 2023-12-16 22:53 | PCM.PROG ---
Progress Note Progress Note for Day of Date of Exam: 12/16/23 Subjective Subjective: Patient is a 73-year-old female with a past medical history of hypertension, insomnia, and peripheral vascular disease admitted for post operative right wound infection of the leg. Medicine consulted for medical management. The morning she reports no change in her symptoms. She had difficul ty sleeping at night. No acute events overnight. Labs/imaging: WBC 7.7, hemoglobin 8.9, platelets 450, sodium 145, potassium 3.2, creatinine 0.98, glucose 94. Wound Cultures pending, continue IV antibiotics Zosyn. Home medications have been resumed. Continue with IV fluids LR at 80 mL/h, nicotine patch. Pain control with Dilaudid as needed. Will defer all other wound care management to vascular surgery. Patient continues to have insomnia and her quiviviq is not on pharmacy formulary. Will add melatonin. After further discussion with patient she does report having a low mood and depressed feelings. She admits that this is due to stress from her medical problems as well as other family loss in the past. Discussed with patient at length and both agree that may be beneficial to give a trial of SSRI during this time to help with her mood. Will start on Lexapro. Otherwise continue with current treatment plan. Continue closely monitor, replete electrolytes per protocol. Monitor and follow-up labs in the morning. Time spent on clinical assessment, reviewing labs and imaging, decision making, and documentation greater than 45 minutes. Past Medical Family Social History Allergies: Allergies lisinopril Allergy (Verified 12/15/23 15:28) pollen extracts Allergy (Verified 12/15/23 15:28) Review of Systems ROS changes noted: see HPI Vital Signs and I&O's Vital Signs: Vital Signs Temperature 98.5 F Temperature 98.0 F Temperature 97.9 F Temperature 98.1 F Pulse Rate 82 Pulse Rate 80 Pulse Rate 81 Pulse Rate 80 Pulse Rate 78 Pulse Rate 72 Pulse Rate 72 Pulse Rate 77 Pulse Rate 77 Respiratory Rate 25 Respiratory Rate 23 Respiratory Rate 13 Respiratory Rate 28 Respiratory Rate 17 Respiratory Rate 24 Respiratory Rate 12 Respiratory Rate 30 Respiratory Rate 24 Respiratory Rate 18 Blood Pressure 113/58 Blood Pressure 122/58 Blood Pressure 124/60 Blood Pressure 126/60 Blood Pressure 123/60 Blood Pressure 123/60 Blood Pressure 103/54 O2 Sat by Pulse Oximetry 93 O2 Sat by Pulse Oximetry 94 O2 Sat by Pulse Oximetry 93 O2 Sat by Pulse Oximetry 95 O2 Sat by Pulse Oximetry 95 O2 Sat by Pulse Oximetry 94 O2 Sat by Pulse Oximetry 94 O2 Sat by Pulse Oximetry 94 O2 Sat by Pulse Oximetry 94 Intake and Output: Intake & Output 12/13/23 12/14/23 12/15/23 12/16/23 23:59 23:59 23:59 23:59 Intake Total 790 / 790 2611 / 2611 Balance 790 / 790 2611 / 2611 Physical Exam Oriented: Normal Eyes: Normal Ear: Normal Nose: Normal Throat: Normal Respiratory: Normal Cardiovascular: Normal : Normal Auscultation: Bowel Sounds: Normal Tenderness: Normal Skin: Normal Musculoskeletal: Leg (Right open wound with yellow discharge) Psychiatric: Normal Mood Description: Calm Affect: Anxious Speech Pattern: Clear Laboratory and Diagnostics 12/16/23 04:51 12/16/23 04:51 Labs: 12/15/23 16:15 Groin Wound Gram Stain - Final 12/15/23 16:15 Groin Wound Culture - Preliminary Laboratory WBC 7.7 X10^3/uL (3.6-10.0) 12/16/23 04:51 RBC 3.33 X10^6/uL (3.5-5.4) L 12/16/23 04:51 Hgb 8.9 g/dL (12.0-16.0) L 12/16/23 04:51 Hct 27.4 % (36.0-47.0) L 12/16/23 04:51 MCV 82.3 fL (80.0-100.0) 12/16/23 04:51 MCH 26.7 pg (27.0-34.0) L 12/16/23 04:51 MCHC 32.5 g/dL (33.0-35.0) L 12/16/23 04:51 RDW 17.0 % (11.6-16.5) H 12/16/23 04:51 Plt Count 450 X10^3/uL (150.0-450.0) 12/16/23 04:51 MPV 7.3 fL (7.4-11.0) L 12/16/23 04:51 Neut % (Auto) 61.7 % (42.0-75.0) 12/16/23 04:51 Lymph % (Auto) 26.2 % (21.0-51.0) 12/16/23 04:51 [place] % (Auto) 7.4 % (0.0-13.0) 12/16/23 04:51 Eos % (Auto) 3.5 % (0.9-2.9) H 12/16/23 04:51 Baso % (Auto) 1.2 % (0.2-1.0) H 12/16/23 04:51 Neut # (Auto) 4.7 x10^3/uL (2.2-4.8) 12/16/23 04:51 Lymph # (Auto) 2.0 X10^3/uL (1.3-2.9) 12/16/23 04:51 [place] # (Auto) 0.6 x10^3/uL (0.3-0.8) 12/16/23 04:51 Eos # (Auto) 0.3 x10^3/uL (0.0-0.2) H 12/16/23 04:51 Baso # (Auto) 0.1 X10^3/uL (0.0-0.1) 12/16/23 04:51 Absolute Nucleated RBC 0.1 /100WBC 12/16/23 04:51 Sodium 145 mmol/L (136-145) 12/16/23 04:51 Corrected Sodium TNP 12/16/23 04:51 Potassium 3.2 mmol/L (3.5-5.1) L 12/16/23 04:51 Chloride 105 mmol/L (98-107) 12/16/23 04:51 Carbon Dioxide 35.2 mmol/L (21-32) H 12/16/23 04:51 BUN 8 mg/dL (7-18) 12/16/23 04:51 Creatinine 0.98 mg/dL (0.55-1.02) 12/16/23 04:51 Est GFR (MDRD) Af Amer > 60 (>60) 12/16/23 04:51 Est GFR (MDRD) Non-Af 59 (>60) 12/16/23 04:51 Glucose 94 mg/dL (65-99) 12/16/23 04:51 Calcium 8.3 mg/dL (8.5-10.1) L 12/16/23 04:51 Corrected Calcium 9.4 mg/dL (8.5-10.1) 12/16/23 04:51 Magnesium 1.9 mg/dL (2.0-2.9) L 12/16/23 04:51 Total Bilirubin 0.30 mg/dL (0.2-1.0) 12/16/23 04:51 AST 11 Units/L (15-37) L 12/16/23 04:51 ALT 10 Units/L (12-78) L 12/16/23 04:51 Alkaline Phosphatase 62 Units/L (46-116) 12/16/23 04:51 Total Protein 6.7 g/dL (6.4-8.2) 12/16/23 04:51 Albumin 2.6 g/dL (3.4-5.0) L 12/16/23 04:51 Globulin 4.1 g/dL (2.5-4.5) 12/16/23 04:51 Albumin/Globulin Ratio 0.6 Ratio (1.1-2.1) L 12/16/23 04:51 Plan (1) Postoperative wound infection: Status: Acute Plan: observe, IV antibiotics, culture wound, local wound care (2) Atherosclerosis of [place] arteries of extremities with rest pain, left leg: Status: Acute Plan: resolved and stable, continues Xarelto and aspirin (3) Atherosclerosis of [place] arteries of extremities with rest pain, right leg: Status: Acute Plan: continue Xarelto and aspirin, monitor leg flow arterial (4) Tobacco abuse: Status: Acute Plan: nicotine patch (5) Essential (primary) hypertension: Status: Acute Plan: Home medications (6) Mixed hyperlipidemia: Status: Acute (7) Insomnia: Status: Acute (8) Hypokalemia: Status: Acute Narrative Support Text: replete per protocol (9) Depression: Status: Acute Narrative Support Text: will start on lexapro.
[2023-12-17 06:13] LABS: BASOPHILS # (AUTO) 0.1 X10^3/uL (0.0-0.1); BASOPHILS % (AUTO) 1.5 % (0.2-1.0); EOSINOPHILS # (AUTO) 0.6 x10^3/uL (0.0-0.2); EOSINOPHILS % (AUTO) 6.9 % (0.9-2.9); HEMATOCRIT 24.6 % (36.0-47.0); HEMOGLOBIN 8.1 g/dL (12.0-16.0); LYMPHOCYTES # (AUTO) 1.4 X10^3/uL (1.3-2.9); LYMPHOCYTES % (AUTO) 16.9 % (21.0-51.0); MEAN CORPUSCULAR HGB CONC 32.9 g/dL (33.0-35.0); MEAN CORPUSCULAR VOLUME 82.1 fL (80.0-100.0); MEAN PLATELET VOLUME 7.6 fL (7.4-11.0); MONOCYTES # (AUTO) 0.4 x10^3/uL (0.3-0.8); MONOCYTES % (AUTO) 5.3 % (0.0-13.0); NEUTROPHILS # (AUTO) 5.8 x10^3/uL (2.2-4.8); NEUTROPHILS % (AUTO) 69.4 % (42.0-75.0); PLATELET COUNT 351 X10^3/uL (150.0-450.0); RED CELL DISTRIBUTION WIDTH 16.6 % (11.6-16.5); WHITE BLOOD COUNT 8.3 X10^3/uL (3.6-10.0)
[2023-12-17 06:35] LABS: ALANINE AMINOTRANSFERASE 10 Units/L (12-78); ALBUMIN 2.5 g/dL (3.4-5.0); ALKALINE PHOSPHATASE 58 Units/L (46-116); ASPARTATE AMINO TRANSFERASE 10 Units/L (15-37); BLOOD UREA NITROGEN 3 mg/dL (7-18); CALCIUM 8.3 mg/dL (8.5-10.1); CARBON DIOXIDE 32.8 mmol/L (21-32); CHLORIDE 104 mmol/L (98-107); COR CA(FOR HYPOALB) 9.5 mg/dL (8.5-10.1); CREATININE 0.83 mg/dL (0.55-1.02); GLUCOSE 100 mg/dL (65-99); MAGNESIUM 1.9 mg/dL (2.0-2.9); POTASSIUM 3.2 mmol/L (3.5-5.1); SODIUM 143 mmol/L (136-145); TOTAL PROTEIN 6.3 g/dL (6.4-8.2); eGFR NON BLACK RACES > 60 (>60)
[2023-12-17] MEDS: MAG-OX TAB PO SCH (09:13)
[2023-12-17] MEDS: K-DUR TAB 20 MEQ PO SCH (09:13)
[2023-12-17] MEDS: ROXICODONE TAB 5 MG PO PRN (09:47)
--- NOTE | 2023-12-17 13:01 | NOTE.SOAP ---
Soap Note Note for Day of Date of Exam: 12/17/23 Subjective Data Subjective Data: admitted with wound infection right groin incision being treated with Santyl and IV antibiotics. Objective Data Temperature: 98.2 F Pulse Rate: 81 Respiratory Rate: 24 O2 Sat by Pulse Oximetry: 99 Objective Data: Most of purulence is resolved and see fat in the wound, palapble distal pulses both legs , Hgb=8.1 Assessment Assessment: post op wound infection right groin , improving Plan Plan: Continue IV antibiotics and Alex . Plan to transfer to SNF first of the week.
[2023-12-17] MEDS: MORPHINE SULFATE INJ 2 MG INJ IVP PRN (14:14)
[2023-12-17] MEDS ORDERED: LEXAPRO ONE (19:15)
[2023-12-18 04:51] LABS: BASOPHILS # (AUTO) 0.1 X10^3/uL (0.0-0.1); BASOPHILS % (AUTO) 0.9 % (0.2-1.0); EOSINOPHILS # (AUTO) 0.6 x10^3/uL (0.0-0.2); EOSINOPHILS % (AUTO) 7.6 % (0.9-2.9); HEMATOCRIT 26.4 % (36.0-47.0); HEMOGLOBIN 8.5 g/dL (12.0-16.0); LYMPHOCYTES % (AUTO) 12.3 % (21.0-51.0); MEAN CORPUSCULAR HEMOGLOBIN 26.5 pg (27.0-34.0); MEAN CORPUSCULAR HGB CONC 32.1 g/dL (33.0-35.0); MEAN CORPUSCULAR VOLUME 82.4 fL (80.0-100.0); MEAN PLATELET VOLUME 7.5 fL (7.4-11.0); MONOCYTES # (AUTO) 0.6 x10^3/uL (0.3-0.8); MONOCYTES % (AUTO) 7.1 % (0.0-13.0); NEUTROPHILS # (AUTO) 5.6 x10^3/uL (2.2-4.8); NEUTROPHILS % (AUTO) 72.1 % (42.0-75.0); PLATELET COUNT 351 X10^3/uL (150.0-450.0); RED BLOOD COUNT 3.21 X10^6/uL (3.5-5.4); RED CELL DISTRIBUTION WIDTH 16.8 % (11.6-16.5); WHITE BLOOD COUNT 7.8 X10^3/uL (3.6-10.0)
[2023-12-18 05:05] LABS: ALANINE AMINOTRANSFERASE 9 Units/L (12-78); ALBUMIN 2.5 g/dL (3.4-5.0); ALKALINE PHOSPHATASE 55 Units/L (46-116); ASPARTATE AMINO TRANSFERASE 9 Units/L (15-37); BLOOD UREA NITROGEN 4 mg/dL (7-18); CALCIUM 8.3 mg/dL (8.5-10.1); CARBON DIOXIDE 33.8 mmol/L (21-32); CHLORIDE 105 mmol/L (98-107); COR CA(FOR HYPOALB) 9.5 mg/dL (8.5-10.1); CREATININE 0.76 mg/dL (0.55-1.02); DIGOXIN < 0.20 ng/mL (0.9-2); GLUCOSE 101 mg/dL (65-99); POTASSIUM 3.4 mmol/L (3.5-5.1); SODIUM 143 mmol/L (136-145); TOTAL PROTEIN 6.5 g/dL (6.4-8.2); eGFR NON BLACK RACES > 60 (>60)
[2023-12-18] MEDS ORDERED: CONSULT PHARMACY - POTASSIUM & MAGNESIUM XX SCH (07:00)
[2023-12-18] MEDS: MAG-OX TAB PO SCH (08:39)
[2023-12-18] MEDS: K-DUR TAB 20 MEQ PO SCH (08:40)
[2023-12-18] MEDS: ZYVOX 600MG IV 600 MG/300 ML BAG IV SCH (09:31)
--- NOTE | 2023-12-18 10:20 | PCM.PROG ---
Progress Note Progress Note for Day of Date of Exam: 12/17/23 Subjective Subjective: Patient is a 73-year-old female with a past medical history of hypertension, insomnia, and peripheral vascular disease admitted for post operative right wound infection of the leg. Medicine consulted for medical management. The morning she reports some improvement in symptoms. No acute even ts overnight. She does remain weak. Labs/imaging: WBC 8.3, hemoglobin 8.1, platelets 351, sodium 143, potassium 3.2, creatinine 0.83, glucose 100. Wound Cultures prelim gram positive cocci, continue IV antibiotics Zosyn. Home medications have been resumed. Continue with IV fluids LR at 80 mL/h, nicotine patch. Pain control with Dilaudid as needed. Will defer all other wound care management to vascular surgery. Otherwise continue with current treatment plan. Continue closely monitor, replete electrolytes per protocol. Monitor and follow-up labs in the morning. Past Medical Family Social History Allergies: Allergies lisinopril Allergy (Verified 12/15/23 15:28) pollen extracts Allergy (Verified 12/15/23 15:28) Review of Systems ROS changes noted: see HPI Vital Signs and I&O's Vital Signs: Vital Signs Temperature 98.2 F Temperature 98.2 F Pulse Rate 84 Pulse Rate 82 Pulse Rate 79 Pulse Rate 83 Pulse Rate 82 Pulse Rate 86 Pulse Rate 74 Pulse Rate 74 Pulse Rate 74 Respiratory Rate 20 Respiratory Rate 20 Respiratory Rate 34 Respiratory Rate 22 Respiratory Rate 24 Respiratory Rate 22 Respiratory Rate 20 Respiratory Rate 17 Respiratory Rate 16 Respiratory Rate 16 Blood Pressure 125/65 Blood Pressure 121/75 Blood Pressure 121/75 Blood Pressure 121/75 Blood Pressure 125/58 Blood Pressure 125/56 O2 Sat by Pulse Oximetry 98 O2 Sat by Pulse Oximetry 96 O2 Sat by Pulse Oximetry 93 O2 Sat by Pulse Oximetry 96 O2 Sat by Pulse Oximetry 96 O2 Sat by Pulse Oximetry 89 O2 Sat by Pulse Oximetry 94 O2 Sat by Pulse Oximetry 98 O2 Sat by Pulse Oximetry 100 Intake and Output: Intake & Output 12/15/23 12/16/23 12/17/23 12/18/23 23:59 23:59 23:59 23:59 Intake Total 790 / 790 3608 / 3608 2982 / 2982 608 / 608 Balance 790 / 790 3608 / 3608 2982 / 2982 608 / 608 Physical Exam Oriented: Normal Eyes: Normal Ear: Normal Nose: Normal Throat: Normal Respiratory: Normal Cardiovascular: Normal : Normal Auscultation: Bowel Sounds: Normal Tenderness: Normal Skin: Normal Musculoskeletal: Leg (Right open wound ) Psychiatric: Normal Mood Description: Calm Affect: Anxious Speech Pattern: Clear and Appropriate Laboratory and Diagnostics 12/18/23 04:24 12/18/23 04:24 Labs: 12/15/23 16:15 Groin Wound Gram Stain - Final 12/15/23 16:15 Groin Wound Culture - Final Staphylococcus Haemolyticus Laboratory WBC 7.8 X10^3/uL (3.6-10.0) 12/18/23 04:24 RBC 3.21 X10^6/uL (3.5-5.4) L 12/18/23 04:24 Hgb 8.5 g/dL (12.0-16.0) L 12/18/23 04:24 Hct 26.4 % (36.0-47.0) L 12/18/23 04:24 MCV 82.4 fL (80.0-100.0) 12/18/23 04:24 MCH 26.5 pg (27.0-34.0) L 12/18/23 04:24 MCHC 32.1 g/dL (33.0-35.0) L 12/18/23 04:24 RDW 16.8 % (11.6-16.5) H 12/18/23 04:24 Plt Count 351 X10^3/uL (150.0-450.0) 12/18/23 04:24 MPV 7.5 fL (7.4-11.0) 12/18/23 04:24 Neut % (Auto) 72.1 % (42.0-75.0) 12/18/23 04:24 Lymph % (Auto) 12.3 % (21.0-51.0) L 12/18/23 04:24 [place] % (Auto) 7.1 % (0.0-13.0) 12/18/23 04:24 Eos % (Auto) 7.6 % (0.9-2.9) H 12/18/23 04:24 Baso % (Auto) 0.9 % (0.2-1.0) 12/18/23 04:24 Neut # (Auto) 5.6 x10^3/uL (2.2-4.8) H 12/18/23 04:24 Lymph # (Auto) 1.0 X10^3/uL (1.3-2.9) L 12/18/23 04:24 [place] # (Auto) 0.6 x10^3/uL (0.3-0.8) 12/18/23 04:24 Eos # (Auto) 0.6 x10^3/uL (0.0-0.2) H 12/18/23 04:24 Baso # (Auto) 0.1 X10^3/uL (0.0-0.1) 12/18/23 04:24 Absolute Nucleated RBC 0.1 /100WBC 12/18/23 04:24 Sodium 143 mmol/L (136-145) 12/18/23 04:24 Corrected Sodium TNP 12/18/23 04:24 Potassium 3.4 mmol/L (3.5-5.1) L 12/18/23 04:24 Chloride 105 mmol/L (98-107) 12/18/23 04:24 Carbon Dioxide 33.8 mmol/L (21-32) H 12/18/23 04:24 BUN 4 mg/dL (7-18) L 12/18/23 04:24 Creatinine 0.76 mg/dL (0.55-1.02) 12/18/23 04:24 Est GFR (MDRD) Af Amer > 60 (>60) 12/18/23 04:24 Est GFR (MDRD) Non-Af > 60 (>60) 12/18/23 04:24 Glucose 101 mg/dL (65-99) H 12/18/23 04:24 Calcium 8.3 mg/dL (8.5-10.1) L 12/18/23 04:24 Corrected Calcium 9.5 mg/dL (8.5-10.1) 12/18/23 04:24 Magnesium 1.9 mg/dL (2.0-2.9) L 12/18/23 04:24 Total Bilirubin 0.20 mg/dL (0.2-1.0) 12/18/23 04:24 AST 9 Units/L (15-37) L 12/18/23 04:24 ALT 9 Units/L (12-78) L 12/18/23 04:24 Alkaline Phosphatase 55 Units/L (46-116) 12/18/23 04:24 Total Protein 6.5 g/dL (6.4-8.2) 12/18/23 04:24 Albumin 2.5 g/dL (3.4-5.0) L 12/18/23 04:24 Globulin 4.0 g/dL (2.5-4.5) 12/18/23 04:24 Albumin/Globulin Ratio 0.6 Ratio (1.1-2.1) L 12/18/23 04:24 Digoxin < 0.20 ng/mL (0.9-2) L 12/18/23 04:24 Plan (1) Postoperative wound infection: Status: Acute Plan: observe, IV antibiotics, culture wound, local wound care (2) Atherosclerosis of [place] arteries of extremities with rest pain, left leg: Status: Acute Plan: resolved and stable, continues Xarelto and aspirin (3) Atherosclerosis of [place] arteries of extremities with rest pain, right leg: Status: Acute Plan: continue Xarelto and aspirin, monitor leg flow arterial (4) Tobacco abuse: Status: Acute Plan: nicotine patch (5) Essential (primary) hypertension: Status: Acute Plan: Home medications (6) Mixed hyperlipidemia: Status: Acute (7) Insomnia: Status: Acute (8) Hypokalemia: Status: Acute (9) Depression: Status: Acute
--- NOTE | 2023-12-18 15:49 | NOTE.SOAP ---
Soap Note Note for Day of Date of Exam: 12/18/23 Subjective Data Subjective Data: Hospital day # 3 after admission for wound infection right groin. Patient not physically seen by me today. Objective Data Temperature: 98.5 F Pulse Rate: 79 Respiratory Rate: 20 Blood Pressure: 120/69 O2 Sat by Pulse Oximetry: 94 Objective Data: Wound reported to be continuing to improve , Hgb=8.5,WBC=7.8 Assessment Assessment: Right groin wound infection improving Plan Plan: awaiitng placement
[2023-12-18] MEDS ORDERED: LEXAPRO ONE (19:07)
[2023-12-18] MEDS: TYLENOL 325 MG TAB PO PRN (19:45)
[2023-12-19 05:02] LABS: BASOPHILS # (AUTO) 0.1 X10^3/uL (0.0-0.1); BASOPHILS % (AUTO) 1.1 % (0.2-1.0); EOSINOPHILS # (AUTO) 0.5 x10^3/uL (0.0-0.2); EOSINOPHILS % (AUTO) 8.5 % (0.9-2.9); HEMATOCRIT 26.9 % (36.0-47.0); HEMOGLOBIN 8.8 g/dL (12.0-16.0); LYMPHOCYTES # (AUTO) 1.3 X10^3/uL (1.3-2.9); LYMPHOCYTES % (AUTO) 20.6 % (21.0-51.0); MEAN CORPUSCULAR HEMOGLOBIN 26.8 pg (27.0-34.0); MEAN CORPUSCULAR HGB CONC 32.8 g/dL (33.0-35.0); MEAN CORPUSCULAR VOLUME 81.6 fL (80.0-100.0); MEAN PLATELET VOLUME 7.6 fL (7.4-11.0); MONOCYTES # (AUTO) 0.4 x10^3/uL (0.3-0.8); MONOCYTES % (AUTO) 6.8 % (0.0-13.0); PLATELET COUNT 376 X10^3/uL (150.0-450.0); RED CELL DISTRIBUTION WIDTH 16.9 % (11.6-16.5); WHITE BLOOD COUNT 6.3 X10^3/uL (3.6-10.0)
[2023-12-19 05:16] LABS: ALANINE AMINOTRANSFERASE 11 Units/L (12-78); ALBUMIN 2.5 g/dL (3.4-5.0); ALKALINE PHOSPHATASE 56 Units/L (46-116); ASPARTATE AMINO TRANSFERASE 12 Units/L (15-37); BLOOD UREA NITROGEN 7 mg/dL (7-18); CALCIUM 8.2 mg/dL (8.5-10.1); CARBON DIOXIDE 33.7 mmol/L (21-32); CHLORIDE 103 mmol/L (98-107); COR CA(FOR HYPOALB) 9.4 mg/dL (8.5-10.1); CREATININE 0.94 mg/dL (0.55-1.02); GLUCOSE 93 mg/dL (65-99); MAGNESIUM 1.9 mg/dL (2.0-2.9); POTASSIUM 3.7 mmol/L (3.5-5.1); SODIUM 142 mmol/L (136-145); TOTAL PROTEIN 6.5 g/dL (6.4-8.2); eGFR NON BLACK RACES > 60 (>60)
[2023-12-19] MEDS: CONSULT PHARMACY - POTASSIUM & MAGNESIUM XX SCH ×2 (07:05)
[2023-12-19] MEDS: ZYVOX TAB 600 MG PO SCH (07:05)
[2023-12-19] MEDS ORDERED: COLACE CAP 100 MG PO PRN (07:28)
[2023-12-19] MEDS: K-DUR TAB 20 MEQ PO SCH (08:20)
[2023-12-19] MEDS: MAG-OX TAB PO SCH (08:20)
[2023-12-19] MEDS: LEXAPRO ONE (20:01)
--- NOTE | 2023-12-19 23:11 | NOTE.SOAP ---
Soap Note Note for Day of Date of Exam: 12/19/23 Subjective Data Subjective Data: Right groin wound continues to clean up has exposed subcutaneous tissue. Objective Data Temperature: 98.1 F Pulse Rate: 77 Respiratory Rate: 19 Blood Pressure: 117/58 O2 Sat by Pulse Oximetry: 97 Objective Data: Wound as above. Culture of wound shows Staph.hemolyticus. Resistant to Vancomycin , sensitize to Clindamycin Assessment Assessment: No cellulitis , Wound with exposed subcutaneous tissue treated with Santyl Plan Plan: TO SNF tomorrow , change to po Clindamycin
[2023-12-20 03:03] VITALS: PULSE 74
[2023-12-20 05:08] LABS: BASOPHILS # (AUTO) 0.1 X10^3/uL (0.0-0.1); BASOPHILS % (AUTO) 1.1 % (0.2-1.0); EOSINOPHILS # (AUTO) 0.5 x10^3/uL (0.0-0.2); EOSINOPHILS % (AUTO) 6.8 % (0.9-2.9); HEMATOCRIT 25.1 % (36.0-47.0); HEMOGLOBIN 8.2 g/dL (12.0-16.0); LYMPHOCYTES # (AUTO) 0.9 X10^3/uL (1.3-2.9); MEAN CORPUSCULAR HEMOGLOBIN 26.7 pg (27.0-34.0); MEAN CORPUSCULAR HGB CONC 32.7 g/dL (33.0-35.0); MEAN CORPUSCULAR VOLUME 81.6 fL (80.0-100.0); MEAN PLATELET VOLUME 7.6 fL (7.4-11.0); MONOCYTES # (AUTO) 0.5 x10^3/uL (0.3-0.8); MONOCYTES % (AUTO) 6.5 % (0.0-13.0); NEUTROPHILS # (AUTO) 5.7 x10^3/uL (2.2-4.8); NEUTROPHILS % (AUTO) 73.6 % (42.0-75.0); PLATELET COUNT 349 X10^3/uL (150.0-450.0); RED BLOOD COUNT 3.08 X10^6/uL (3.5-5.4); RED CELL DISTRIBUTION WIDTH 16.5 % (11.6-16.5); WHITE BLOOD COUNT 7.7 X10^3/uL (3.6-10.0)
[2023-12-20 05:23] LABS: ALANINE AMINOTRANSFERASE 11 Units/L (12-78); ALBUMIN 2.4 g/dL (3.4-5.0); ALKALINE PHOSPHATASE 48 Units/L (46-116); ASPARTATE AMINO TRANSFERASE 10 Units/L (15-37); BLOOD UREA NITROGEN 7 mg/dL (7-18); CALCIUM 8.4 mg/dL (8.5-10.1); CARBON DIOXIDE 31.6 mmol/L (21-32); CHLORIDE 104 mmol/L (98-107); COR CA(FOR HYPOALB) 9.7 mg/dL (8.5-10.1); CREATININE 0.85 mg/dL (0.55-1.02); GLUCOSE 99 mg/dL (65-99); POTASSIUM 3.9 mmol/L (3.5-5.1); SODIUM 141 mmol/L (136-145); eGFR NON BLACK RACES > 60 (>60)
[2023-12-20] MEDS: CLEOCIN PO SCH (08:20)
[2023-12-20 08:41] VITALS: BP 119/58; O2SAT 92
--- NOTE | 2023-12-20 09:37 | PCM.PROG ---
Progress Note Progress Note for Day of Date of Exam: 12/20/23 Subjective Subjective: Patient seen at bedside, no acute events overnight. She is doing better this morning. She is currently admitted for post-op right inguinal infection. She has been accepted at [facility]. She is currently on Clindamycin. Patient's wound dressing was changed today. Labs/imaging -Hgb 8.2 K:3.9 Plan: Continue current treatment. Patient stable to be discharged to [facility]. Continue PO antibiotics as directed by Dr Campos. F/U as scheduled. Continue pain control and wound care. Past Medical Family Social History Allergies: Allergies lisinopril Allergy (Verified 12/15/23 15:28) pollen extracts Allergy (Verified 12/15/23 15:28) Vital Signs and I&O's Vital Signs: Vital Signs Temperature 98.4 F Pulse Rate 74 Pulse Rate 74 Respiratory Rate 14 Blood Pressure 119/58 Blood Pressure 107/58 O2 Sat by Pulse Oximetry 92 O2 Sat by Pulse Oximetry 96 Intake and Output: Intake & Output 12/17/23 12/18/23 12/19/23 12/20/23 23:59 23:59 23:59 23:59 Intake Total 2982 / 2982 3137 / 3137 3109 / 3109 478 / 478 Balance 2982 / 2982 3137 / 3137 3109 / 3109 478 / 478 Physical Exam Oriented: Normal Eyes: Normal Ear: Normal Nose: Normal Throat: Normal Respiratory: Normal Cardiovascular: Normal Auscultation: Bowel Sounds: Normal Tenderness: Normal Skin: Normal Musculoskeletal: Leg (Right open wound - dressing intact ) Psychiatric: Normal Mood Description: Calm Affect: Normal Speech Pattern: Clear and Appropriate Laboratory and Diagnostics 12/20/23 04:14 12/20/23 04:14 Labs: 12/15/23 16:15 Groin Wound Gram Stain - Final 12/15/23 16:15 Groin Wound Culture - Final Staphylococcus Haemolyticus Laboratory WBC 7.7 X10^3/uL (3.6-10.0) 12/20/23 04:14 RBC 3.08 X10^6/uL (3.5-5.4) L 12/20/23 04:14 Hgb 8.2 g/dL (12.0-16.0) L 12/20/23 04:14 Hct 25.1 % (36.0-47.0) L 12/20/23 04:14 MCV 81.6 fL (80.0-100.0) 12/20/23 04:14 MCH 26.7 pg (27.0-34.0) L 12/20/23 04:14 MCHC 32.7 g/dL (33.0-35.0) L 12/20/23 04:14 RDW 16.5 % (11.6-16.5) 12/20/23 04:14 Plt Count 349 X10^3/uL (150.0-450.0) 12/20/23 04:14 MPV 7.6 fL (7.4-11.0) 12/20/23 04:14 Neut % (Auto) 73.6 % (42.0-75.0) 12/20/23 04:14 Lymph % (Auto) 12.0 % (21.0-51.0) L 12/20/23 04:14 [place] % (Auto) 6.5 % (0.0-13.0) 12/20/23 04:14 Eos % (Auto) 6.8 % (0.9-2.9) H 12/20/23 04:14 Baso % (Auto) 1.1 % (0.2-1.0) H 12/20/23 04:14 Neut # (Auto) 5.7 x10^3/uL (2.2-4.8) H 12/20/23 04:14 Lymph # (Auto) 0.9 X10^3/uL (1.3-2.9) L 12/20/23 04:14 [place] # (Auto) 0.5 x10^3/uL (0.3-0.8) 12/20/23 04:14 Eos # (Auto) 0.5 x10^3/uL (0.0-0.2) H 12/20/23 04:14 Baso # (Auto) 0.1 X10^3/uL (0.0-0.1) 12/20/23 04:14 Absolute Nucleated RBC 0.0 /100WBC 12/20/23 04:14 Sodium 141 mmol/L (136-145) 12/20/23 04:14 Corrected Sodium TNP 12/20/23 04:14 Potassium 3.9 mmol/L (3.5-5.1) 12/20/23 04:14 Chloride 104 mmol/L (98-107) 12/20/23 04:14 Carbon Dioxide 31.6 mmol/L (21-32) 12/20/23 04:14 BUN 7 mg/dL (7-18) 12/20/23 04:14 Creatinine 0.85 mg/dL (0.55-1.02) 12/20/23 04:14 Est GFR (MDRD) Af Amer > 60 (>60) 12/20/23 04:14 Est GFR (MDRD) Non-Af > 60 (>60) 12/20/23 04:14 Glucose 99 mg/dL (65-99) 12/20/23 04:14 Calcium 8.4 mg/dL (8.5-10.1) L 12/20/23 04:14 Corrected Calcium 9.7 mg/dL (8.5-10.1) 12/20/23 04:14 Magnesium 1.9 mg/dL (2.0-2.9) L 12/19/23 04:08 Total Bilirubin 0.20 mg/dL (0.2-1.0) 12/20/23 04:14 AST 10 Units/L (15-37) L 12/20/23 04:14 ALT 11 Units/L (12-78) L 12/20/23 04:14 Alkaline Phosphatase 48 Units/L (46-116) 12/20/23 04:14 Total Protein 6.0 g/dL (6.4-8.2) L 12/20/23 04:14 Albumin 2.4 g/dL (3.4-5.0) L 12/20/23 04:14 Globulin 3.6 g/dL (2.5-4.5) 12/20/23 04:14 Albumin/Globulin Ratio 0.7 Ratio (1.1-2.1) L 12/20/23 04:14 Digoxin < 0.20 ng/mL (0.9-2) L 12/18/23 04:24 Plan (1) Postoperative wound infection: Status: Acute (2) Atherosclerosis of [place] arteries of extremities with rest pain, left leg: Status: Acute (3) Atherosclerosis of [place] arteries of extremities with rest pain, right leg: Status: Acute (4) Tobacco abuse: Status: Acute Plan: nicotine patch (5) Essential (primary) hypertension: Status: Acute Plan: Home medications (6) Mixed hyperlipidemia: Status: Acute (7) Insomnia: Status: Acute Qualifiers: Insomnia type: primary Qualified Code(s): F51.01 - Primary insomnia
[2023-12-20] MEDS: CLEOCIN PO NR (10:05)
--- NOTE | 2023-12-20 11:22 | W.DIS.FURT ---
Summary of Discharge Discharge Summary of Date Date of Exam: 12/20/23 Admission Date Date of Admission: 12/15/23 Admission Diagnosis Hospital Course: This 73 year old female was seen several weeks ago with bilateral lower extremity critical ischemia . At that time she underwent atherectomy and angioplasty of the left superficial femoral artery and developed bilateral common iliac artery dissections ultimately requiring stenting of both common iliac arteries and both external iliac arteries. She also had severe stenosis of the right common fermoral artery treated with right femoral endarterectomy and patch angioplasty . Post procedure she presented with complaints of pain in the right groin and had a right groin wound infection. She had palpable pulse of both legs. She was admitted and placed an IV antibiotics. Cultures obtained , ultimately growing Staphylococcus hemolyticus sensitive to Clindamycin . The wound has been treated with topical Santyl. Most of the purulence resolved and I just see fat in the subcutaneous tissue. No exposed artery. Patient will be discharged to Care Home today she will continue Santyl to the wound. She will be on Clindamycin 150 mg po TID She Will Follow up with me in 2 weeks Vital Signs: Vital Signs (72 hours) 12/18/23 15:49 12/17/23 13:01 12/19/23 23:06 Temperature 98.5 F 98.2 F 98.1 F Pulse Rate 79 81 77 Respiratory Rate 20 24 19 Blood Pressure 120/69 117/58 O2 Sat by Pulse Oximetry 94 L 99 97 Oxygen Delivery Method Oxygen Flow Rate FIO2% 12/17/23 11:00 12/17/23 12:00 12/17/23 14:14 Temperature 98.2 F Pulse Rate 80 81 Respiratory Rate 18 24 14 Blood Pressure O2 Sat by Pulse Oximetry 92 L 99 Oxygen Delivery Method Oxygen Flow Rate FIO2% 12/17/23 13:01 12/17/23 14:00 12/17/23 14:44 Temperature Pulse Rate 86 89 Respiratory Rate 18 13 24 Blood Pressure O2 Sat by Pulse Oximetry 96 Oxygen Delivery Method Oxygen Flow Rate FIO2% 12/17/23 15:00 12/17/23 16:00 12/17/23 17:00 Temperature Pulse Rate 84 84 84 Respiratory Rate 21 17 11 L Blood Pressure O2 Sat by Pulse Oximetry 93 L 90 L 93 L Oxygen Delivery Method Oxygen Flow Rate FIO2% 12/17/23 18:00 12/17/23 19:00 12/17/23 20:00 Temperature 98.4 F Pulse Rate 83 80 Respiratory Rate 15 12 Blood Pressure 142/65 O2 Sat by Pulse Oximetry 94 L 94 L Oxygen Delivery Method Room Air Oxygen Flow Rate FIO2% 12/17/23 21:18 12/17/23 22:00 12/17/23 23:09 Temperature Pulse Rate 86 Respiratory Rate 18 15 Blood Pressure 125/58 O2 Sat by Pulse Oximetry 99 Oxygen Delivery Method Nasal Cannula Nasal Cannula Oxygen Flow Rate 2 2 FIO2% 28 12/18/23 00:00 12/17/23 22:18 12/18/23 02:00 Temperature 98.4 F Pulse Rate 75 74 Respiratory Rate 16 18 15 Blood Pressure 113/53 118/58 O2 Sat by Pulse Oximetry 99 95 Oxygen Delivery Method Nasal Cannula Nasal Cannula Oxygen Flow Rate 2 2 FIO2% 12/18/23 04:00 12/18/23 06:00 12/18/23 07:00 Temperature 98.2 F Pulse Rate 74 82 Respiratory Rate 16 22 Blood Pressure 125/56 121/75 O2 Sat by Pulse Oximetry 98 96 Oxygen Delivery Method Nasal Cannula Nasal Cannula Room Air Oxygen Flow Rate 2 2 FIO2% 12/17/23 19:00 12/17/23 19:00 12/17/23 20:00 Temperature Pulse Rate 80 Respiratory Rate 10 L Blood Pressure 129/60 142/65 O2 Sat by Pulse Oximetry 94 L Oxygen Delivery Method Oxygen Flow Rate FIO2% 12/17/23 20:00 12/17/23 21:00 12/17/23 21:09 Temperature Pulse Rate 81 88 Respiratory Rate 12 27 H Blood Pressure 130/75 O2 Sat by Pulse Oximetry 95 95 Oxygen Delivery Method Oxygen Flow Rate FIO2% 12/17/23 21:09 12/17/23 22:00 12/17/23 22:00 Temperature Pulse Rate 98 H 85 Respiratory Rate 22 16 Blood Pressure 125/58 O2 Sat by Pulse Oximetry 90 L 99 Oxygen Delivery Method Oxygen Flow Rate FIO2% 12/17/23 23:00 12/18/23 00:00 12/18/23 00:00 Temperature Pulse Rate 85 74 Respiratory Rate 19 15 Blood Pressure 113/53 O2 Sat by Pulse Oximetry 95 99 Oxygen Delivery Method Oxygen Flow Rate FIO2% 12/18/23 01:00 12/18/23 02:00 12/18/23 02:00 Temperature Pulse Rate 81 70 Respiratory Rate 16 14 Blood Pressure 118/58 O2 Sat by Pulse Oximetry 93 L 98 Oxygen Delivery Method Oxygen Flow Rate FIO2% 12/18/23 03:00 12/18/23 04:00 12/18/23 04:00 Temperature Pulse Rate 74 74 Respiratory Rate 16 17 Blood Pressure 125/58 O2 Sat by Pulse Oximetry 100 94 L Oxygen Delivery Method Oxygen Flow Rate FIO2% 12/18/23 05:00 12/18/23 06:00 12/18/23 06:00 Temperature Pulse Rate 86 Respiratory Rate 20 Blood Pressure 121/75 121/75 O2 Sat by Pulse Oximetry 89 L Oxygen Delivery Method Oxygen Flow Rate FIO2% 12/18/23 06:00 12/18/23 07:00 12/18/23 08:00 Temperature Pulse Rate 83 79 Respiratory Rate 24 22 Blood Pressure 125/65 O2 Sat by Pulse Oximetry 96 93 L Oxygen Delivery Method Oxygen Flow Rate FIO2% 12/18/23 08:00 12/18/23 08:41 12/18/23 08:12 Temperature 98.2 F Pulse Rate 82 Respiratory Rate 34 H 20 Blood Pressure O2 Sat by Pulse Oximetry 96 Oxygen Delivery Method Room Air Oxygen Flow Rate 2 FIO2% 28 12/18/23 09:03 12/18/23 09:41 12/18/23 09:40 Temperature Pulse Rate 84 222 H Respiratory Rate 20 Blood Pressure O2 Sat by Pulse Oximetry 98 82 L Oxygen Delivery Method Oxygen Flow Rate FIO2% 12/18/23 10:00 12/18/23 12:00 12/18/23 12:01 Temperature Pulse Rate Respiratory Rate Blood Pressure 129/63 123/67 120/69 O2 Sat by Pulse Oximetry Oxygen Delivery Method Oxygen Flow Rate FIO2% 12/18/23 12:02 12/18/23 13:34 12/18/23 14:04 Temperature 98.5 F Pulse Rate 79 Respiratory Rate 20 20 Blood Pressure O2 Sat by Pulse Oximetry 94 L Oxygen Delivery Method Room Air Oxygen Flow Rate FIO2% 12/18/23 16:17 12/18/23 13:00 12/18/23 16:11 Temperature 98.6 F Pulse Rate 77 Respiratory Rate 20 Blood Pressure O2 Sat by Pulse Oximetry 82 L 94 L Oxygen Delivery Method Room Air Oxygen Flow Rate FIO2% 12/18/23 16:11 12/18/23 17:17 12/18/23 19:45 Temperature Pulse Rate Respiratory Rate 20 18 Blood Pressure 127/61 O2 Sat by Pulse Oximetry Oxygen Delivery Method Oxygen Flow Rate FIO2% 12/18/23 20:46 12/18/23 21:43 12/18/23 19:00 Temperature Pulse Rate Respiratory Rate 16 16 Blood Pressure O2 Sat by Pulse Oximetry Oxygen Delivery Method Room Air Oxygen Flow Rate FIO2% 12/18/23 20:00 12/18/23 21:59 12/18/23 22:43 Temperature 98.2 F Pulse Rate 75 Respiratory Rate 16 16 Blood Pressure 135/60 O2 Sat by Pulse Oximetry 95 Oxygen Delivery Method Room Air Room Air Oxygen Flow Rate 2 FIO2% 28 12/18/23 23:55 12/19/23 04:00 12/19/23 08:00 Temperature 98.0 F 98.1 F 97.9 F Pulse Rate 83 84 79 Respiratory Rate 17 16 Blood Pressure 125/59 108/56 122/60 O2 Sat by Pulse Oximetry 95 94 L 96 Oxygen Delivery Method Room Air Room Air Oxygen Flow Rate FIO2% 12/19/23 08:10 12/19/23 08:32 12/19/23 12:25 Temperature Pulse Rate Respiratory Rate 16 Blood Pressure O2 Sat by Pulse Oximetry Oxygen Delivery Method Room Air Room Air Oxygen Flow Rate FIO2% 12/19/23 08:28 12/19/23 08:28 12/19/23 09:47 Temperature Pulse Rate 78 78 Respiratory Rate Blood Pressure 122/60 O2 Sat by Pulse Oximetry 95 96 Oxygen Delivery Method Oxygen Flow Rate FIO2% 12/19/23 10:00 12/19/23 11:59 12/19/23 12:00 Temperature Pulse Rate 81 Respiratory Rate Blood Pressure 121/56 O2 Sat by Pulse Oximetry 83 L 94 L Oxygen Delivery Method Oxygen Flow Rate FIO2% 12/19/23 12:00 12/19/23 12:54 12/19/23 15:15 Temperature 97.6 F Pulse Rate 81 80 Respiratory Rate 16 Blood Pressure O2 Sat by Pulse Oximetry 96 70 L Oxygen Delivery Method Oxygen Flow Rate FIO2% 12/19/23 16:04 12/19/23 16:06 12/19/23 16:06 Temperature 97.9 F Pulse Rate 75 73 Respiratory Rate Blood Pressure 123/64 O2 Sat by Pulse Oximetry 93 L 96 Oxygen Delivery Method Oxygen Flow Rate FIO2% 12/19/23 18:58 12/19/23 20:02 12/19/23 20:00 Temperature 98.1 F Pulse Rate 77 Respiratory Rate 16 19 Blood Pressure 117/58 O2 Sat by Pulse Oximetry 97 Oxygen Delivery Method Room Air Room Air Oxygen Flow Rate FIO2% 12/19/23 21:02 12/19/23 22:09 12/20/23 00:00 Temperature 98.5 F Pulse Rate 72 Respiratory Rate 16 17 Blood Pressure 106/53 O2 Sat by Pulse Oximetry 95 Oxygen Delivery Method Room Air Oxygen Flow Rate FIO2% 12/20/23 03:02 12/20/23 07:00 12/20/23 08:26 Temperature 98.4 F Pulse Rate 74 Respiratory Rate 14 Blood Pressure 107/58 119/58 O2 Sat by Pulse Oximetry 96 Oxygen Delivery Method Room Air Room Air Oxygen Flow Rate FIO2% 12/20/23 08:27 Temperature Pulse Rate 74 Respiratory Rate Blood Pressure O2 Sat by Pulse Oximetry 92 L Oxygen Delivery Method Oxygen Flow Rate FIO2% Labs: Laboratory Last Values WBC 7.7 X10^3/uL (3.6-10.0) 12/20/23 04:14 RBC 3.08 X10^6/uL (3.5-5.4) L 12/20/23 04:14 Hgb 8.2 g/dL (12.0-16.0) L 12/20/23 04:14 Hct 25.1 % (36.0-47.0) L 12/20/23 04:14 MCV 81.6 fL (80.0-100.0) 12/20/23 04:14 MCH 26.7 pg (27.0-34.0) L 12/20/23 04:14 MCHC 32.7 g/dL (33.0-35.0) L 12/20/23 04:14 RDW 16.5 % (11.6-16.5) 12/20/23 04:14 Plt Count 349 X10^3/uL (150.0-450.0) 12/20/23 04:14 MPV 7.6 fL (7.4-11.0) 12/20/23 04:14 Neut % (Auto) 73.6 % (42.0-75.0) 12/20/23 04:14 Lymph % (Auto) 12.0 % (21.0-51.0) L 12/20/23 04:14 [place] % (Auto) 6.5 % (0.0-13.0) 12/20/23 04:14 Eos % (Auto) 6.8 % (0.9-2.9) H 12/20/23 04:14 Baso % (Auto) 1.1 % (0.2-1.0) H 12/20/23 04:14 Neut # (Auto) 5.7 x10^3/uL (2.2-4.8) H 12/20/23 04:14 Lymph # (Auto) 0.9 X10^3/uL (1.3-2.9) L 12/20/23 04:14 [place] # (Auto) 0.5 x10^3/uL (0.3-0.8) 12/20/23 04:14 Eos # (Auto) 0.5 x10^3/uL (0.0-0.2) H 12/20/23 04:14 Baso # (Auto) 0.1 X10^3/uL (0.0-0.1) 12/20/23 04:14 Absolute Nucleated RBC 0.0 /100WBC 12/20/23 04:14 Sodium 141 mmol/L (136-145) 12/20/23 04:14 Corrected Sodium TNP 12/20/23 04:14 Potassium 3.9 mmol/L (3.5-5.1) 12/20/23 04:14 Chloride 104 mmol/L (98-107) 12/20/23 04:14 Carbon Dioxide 31.6 mmol/L (21-32) 12/20/23 04:14 BUN 7 mg/dL (7-18) 12/20/23 04:14 Creatinine 0.85 mg/dL (0.55-1.02) 12/20/23 04:14 Est GFR (MDRD) Af Amer > 60 (>60) 12/20/23 04:14 Est GFR (MDRD) Non-Af > 60 (>60) 12/20/23 04:14 Glucose 99 mg/dL (65-99) 12/20/23 04:14 Calcium 8.4 mg/dL (8.5-10.1) L 12/20/23 04:14 Corrected Calcium 9.7 mg/dL (8.5-10.1) 12/20/23 04:14 Magnesium 1.9 mg/dL (2.0-2.9) L 12/19/23 04:08 Total Bilirubin 0.20 mg/dL (0.2-1.0) 12/20/23 04:14 AST 10 Units/L (15-37) L 12/20/23 04:14 ALT 11 Units/L (12-78) L 12/20/23 04:14 Alkaline Phosphatase 48 Units/L (46-116) 12/20/23 04:14 Total Protein 6.0 g/dL (6.4-8.2) L 12/20/23 04:14 Albumin 2.4 g/dL (3.4-5.0) L 12/20/23 04:14 Globulin 3.6 g/dL (2.5-4.5) 12/20/23 04:14 Albumin/Globulin Ratio 0.7 Ratio (1.1-2.1) L 12/20/23 04:14 Digoxin < 0.20 ng/mL (0.9-2) L 12/18/23 04:24 Reason For Visit: INFECTED WOUND RIGHT GROIN Discharge Date Discharge Date: 12/20/23 Discharge Diagnosis All Active Problems (Updated 12/20/23 @ 09:35 by Anu Packer) Depression (Acute) Postoperative wound infection (Acute) Atherosclerosis of [place] arteries of extremities with rest pain, left leg (Acute) Atherosclerosis of [place] arteries of extremities with rest pain, right leg (Acute) Tobacco abuse (Acute) Essential (primary) hypertension (Acute) Leg pain, bilateral (Acute) Atypical chest pain (Acute) Hypertension (Acute) Altered mental status (Acute) Non-ST elevation IA (NSTEMI) (Acute) Dehydration (Acute) Lower extremity weakness (Acute) Mixed hyperlipidemia (Acute) Annual physical exam (Acute) History of IBS (Acute) KALLIE (generalized anxiety disorder) (Acute) Insomnia (Acute) Bronchitis (Acute) Hypokalemia (Acute) Acute exacerbation of chronic obstructive pulmonary disease (COPD) (Acute) Plan of Treatment: Continue with present treatment and follow up plan. Pt is to keep follow up appointment as instructed and take medications as ordered. Discharge Medications Discharge Medications: lisinopril Allergy (Verified 12/15/23 15:28) pollen extracts Allergy (Verified 12/15/23 15:28) CONTINUE taking the following medications amlodipine 5 mg tablet 5 mg PO QDAY 12/15/23 [History] aspirin 81 mg chewable tablet 81 mg PO QDAY 12/15/23 [History] daridorexant 50 mg tablet (Quviviq) 50 mg PO QDAY 12/15/23 [History] rivaroxaban 2.5 mg tablet (Xarelto) 2.5 mg PO BID 12/15/23 [History] Santyl apply to right groin wound daily Clindamycin 150 mg po TID Discharge Disposition Assessment: see hospitl course Discharge Plan Discharge Plan Hospital Course: This 73 year old female was seen several weeks ago with bilateral lower extremity critical ischemia . At that time she underwent atherectomy and angioplasty of the left superficial femoral artery and developed bilateral common iliac artery dissections ultimately requiring stenting of both common iliac arteries and both external iliac arteries. She also had severe stenosis of the right common fermoral artery treated with right femoral endarterectomy and patch angioplasty . Post procedure she presented with complaints of pain in the right groin and had a right groin wound infection. She had palpable pulse of both legs. She was admitted and placed an IV antibiotics. Cultures obtained , ultimately growing Staphylococcus hemolyticus sensitive to Clindamycin . The wound has been treated with topical Santyl. Most of the purulence resolved and I just see fat in the subcutaneous tissue. No exposed artery. Patient will be discharged to Care Home today she will continue Santyl to the wound. She will be on Clindamycin 150 mg po TID She Will Follow up with me in 2 weeks Patient Disposition: 01 HOME, SELF-CARE Condition: Stable Health Concerns: Post Hospitalization: new medications and changes needed to prevent readmission or further decline. Pt educated and given instructions on all concerns. Plan of Treatment: Continue with present treatment and follow up plan. Pt is to keep follow up appointment as instructed and take medications as ordered. Assessment: see [facility] hospital course Prescription drug monitoring program results: PDMP reviewed with concerns identified Prescriptions: New Santyl 250 unit/gram ointment 1 applic topical QDAY Qty: 90 0RF clindamycin HCl 150 mg capsule 150 mg PO TID Qty: 20 0RF Continued Quviviq 50 mg tablet 50 mg PO QDAY amlodipine 5 mg tablet 5 mg PO QDAY aspirin 81 mg Tablet,Chewable 81 mg PO QDAY Xarelto 2.5 mg tablet 2.5 mg PO BID Follow ups/Referrals Follow ups/Referrals: Andrés Campos [Primary Care Provider] - 1 WEEK Instructions Stand Alone Forms: Excuse From Work or School, Post Hospital Follow Up Care
[2023-12-20 11:50] VITALS: TEMP 98.1
[2023-12-20 13:42] VITALS: RESP 20
[2023-12-20] MEDS ORDERED: CLEOCIN PO SCH (14:00)
== END 2023-12-20 14:20 | DRG 863 ==
LOC: ICU 14:35
PROVIDERS: ADMIT Surgery; ATTEND Surgery
DX: Z86.73 Personal history of transient ischemic attack (TIA), and cerebral infarction without residual deficits; T81.49XA Infection following a procedure, other surgical site, initial encounter; F32.A Depression, unspecified; R26.89 Other abnormalities of gait and mobility; E87.6 Hypokalemia; I10 Essential (primary) hypertension; Z66 Do not resuscitate; F51.01 Primary insomnia; Z72.0 Tobacco use; E78.5 Hyperlipidemia, unspecified; I70.223 Atherosclerosis of native arteries of extremities with rest pain, bilateral legs; B95.7 Other staphylococcus as the cause of diseases classified elsewhere